=== PATIENT | female | born 1980 | race Caucasian/White ===

== ENCOUNTER 2017-11-21 16:52 | Inpatient (IN) | payer MEDICAID ==
[~2017-11-21] VITALS: Ht 157.5 cm; Wt 126.1 kg
[~2017-11-21 16:52] MED LIST: ASPI81CT89 PO; ATOR20TA40 PO; CARV6.252 PO; LISI10TA11 PO; SPIR25TA PO
[2017-11-21 16:59] VITALS: BP 219/186
--- NOTE | 2017-11-21 17:00 | NUR ---
DR. ZARAGOZA MADE AWARE OF B/P 219/189
--- NOTE | 2017-11-21 17:00 | NUR ---
PATIENT PRESENTS TO ED WITH COMPLAINTS OF SOB AND ABDOMINAL PAIN. PATIENT STATES IT STARTED TODAY. DENIES N/V/D; SKIN IS PINK/WARM/DRY; AAOX4 WITH EVEN AND STEADY GAIT; LUNGS CLEAR BL; HR EVEN AND REGULAR; PT DENIES ANY FEVER, CP, OR COUGH AT THIS TIME; PATIENT STATES PAIN OF 6/10 AT THIS TIME; VSS; PATIENT POSITIONED FOR COMFORT; HOB ELEVATED; BEDRAILS UP X1; BED DOWN. ER MD MADE AWARE OF PT STATUS.
[2017-11-21] MEDS ORDERED: PANTOPRAZOLE 40 MG INJ VIAL IVP ONE (17:25)
[2017-11-21] MEDS ORDERED: fentaNYL 0.05 MG/ML VIAL IVP ONE (17:25)
[2017-11-21] MEDS ORDERED: ONDANSETRON 4 MG/2 ML VIAL IVP ONE (17:25)
[2017-11-21] MEDS ORDERED: ENALAPRILAT 2.5 MG/2 ML VIAL IVP ONE ×2 (17:25→18:45)
[2017-11-21 18:14] LABS: ANION GAP 7.6 (8-16); CARBON DIOXIDE 29.9 mmol/L (21-32); POTASSIUM 3.5 mmol/L (3.5-5.1)
[2017-11-21 18:15] LABS: BASOPHILS % (AUTO) 0.4 % (0.0-2.0); EOSINOPHILS # (AUTO) 0.1 K/uL (0-0.4); EOSINOPHILS % (AUTO) 0.9 % (0.0-4.0); HEMATOCRIT 41.6 % (36-48); HEMOGLOBIN 12.9 g/dL (12.0-16.0); LYMPHOCYTES # (AUTO) 3.6 K/uL (2.5-16.5); LYMPHOCYTES % (AUTO) 31.8 % (20.5-51.1); MEAN CORPUSCULAR HEMOGLOBIN 26 pg (27-31); MEAN CORPUSCULAR HGB CONC 31 g/dL (33-37); MEAN CORPUSCULAR VOLUME 84.6 fL (80-94); MONOCYTES # (AUTO) 0.8 K/uL (0.8-1.0); MONOCYTES % (AUTO) 6.7 % (1.7-9.3); NEUTROPHILS # (AUTO) 6.8 K/uL (1.8-7.7); NEUTROPHILS % (AUTO) 60.2 % (42.2-75.2); PLATELET COUNT (AUTO) 227 K/uL (140-450); RED BLOOD CELL COUNT(AUTO) 4.91 MIL/uL (4.20-5.40); RED CELL DISTRIBUTION WIDTH 17.8 % (11.6-13.7); WHITE BLOOD COUNT (AUTO) 11.3 K/uL (4.8-10.8)
[2017-11-21 18:20] LABS: ALBUMIN 3.3 g/dL (3.4-5.0); TOTAL BILIRUBIN 1.2 mg/dL (0.0-1.0)
[2017-11-21] MEDS ORDERED: ASPIRIN 81 MG TAB.CHEW PO ONE (18:45)
[2017-11-21] MEDS ORDERED: NITROGLYCERIN 2% 1 GM PKT TP ONE (18:45)
--- NOTE | 2017-11-21 19:18 | NUR ---
ASKED PT TO GET UP AND TRY TO PROVIDE URINE AGAIN AT THIS TIME
--- NOTE | 2017-11-21 19:22 | NUR ---
PT UNABLE TO PROVIDE URINE AT THIS TIME
[2017-11-21] MEDS ORDERED: ONDANSETRON 4 MG/2 ML VIAL IVP PRN (19:30)
[2017-11-21] MEDS ORDERED: ZOLPIDEM 5 MG TAB PO PRN (19:30)
[2017-11-21] MEDS ORDERED: NITROGLYCERIN 0.4 MG TAB SL PRN (19:40)
--- NOTE | 2017-11-21 19:53 | NUR ---
Dr. Diana evaluating patient at bedside.
--- NOTE | 2017-11-21 19:55 | NUR ---
DR. SMITH AWARE OF B/P 201/156 AT THIS TIME
[2017-11-21 20:05] VITALS: BP 211/166
--- NOTE | 2017-11-21 20:05 | NUR ---
RECEIVED REPORT FROM KODY FINANCE DIRECTOR NURSE AT BEDSIDE FOR CONTINUITY OF CARE. PT ARRIVED FROM ER VIA GURNEY. PT ABLE TO AMBULATE TO THE BED. SHE IS A 36F AOX4 SKIN INTACT WITH C/O OF SOB. PT HX; INCLUDE HTN. V/S INCLUDE: T 97.3 P 90 R 22 B/P 211/166 02 98 WITH 2 L VIA N/C.
--- NOTE | 2017-11-21 20:12 | NUR ---
Patient will be admitted to care of DR. OLEARY. Admited to TELE. Will go to room 107B. Belongings list completed. Report to ZACK GATES.
[2017-11-21 20:16] LABS: PROTHROMBIN TIME 12.6 secs (10.8-13.4)
[2017-11-21] MEDS ORDERED: hydrALAZINE 20 MG/ML VIAL IVP SCH (20:30)
--- NOTE | 2017-11-21 20:30 | NUR ---
RESIDENT DR Mario SMITH MD EVALUATING PT AT BEDSIDE.
[2017-11-21 20:32] LABS: APPEARANCE,URINE CLEAR (CLEAR); BILIRUBIN,URINE 1+ (NEGATIVE); BLOOD, URINE 2+ (NEGATIVE); COLOR,URINE YELLOW (YELLOW); LEUKOCYTE ESTERASE ,URINE NEGATIVE (NEGATIVE); NITRITE, URINE NEGATIVE (NEGATIVE); UGLUCOSE NEGATIVE (NEGATIVE)
[2017-11-21] MEDS ORDERED: ORE25 PO (20:40)
[2017-11-21] MEDS ORDERED: AMLO5TAB PO (20:40)
[2017-11-21] MEDS ORDERED: LISI-420 PO (20:40)
[2017-11-21] MEDS ORDERED: DOCU-300 PO (20:40)
[2017-11-21] MEDS ORDERED: CLON0.2T16 PO (20:40)
[2017-11-21] MEDS ORDERED: hydrALAZINE 10 MG TAB PO STA (20:42)
[2017-11-21] MEDS ORDERED: CLONIDINE HCL 0.2 MG PO SCH (20:45)
[2017-11-21 20:50] LABS: BARBITURATE, URINE NEGATIVE ng/ml (NEG <=200); BENZODIAZEPINE, URINE NEGATIVE ng/mL (NEG <=200); CANNABINOID, URINE NEGATIVE ng/mL (NEG <=50); COCAINE, URINE NEGATIVE ng/mL (NEG <=300); OPIATE, URINE NEGATIVE ng/mL (NEG <=2000); PHENCYCLIDINE SCREEN,URINE NEGATIVE ng/mL (NEG <=25)
[2017-11-21] MEDS: NACL 0.9% 1,000 ML IV SCH (20:59)
[2017-11-21] MEDS ORDERED: DOCUSATE SODIUM 100 MG GELCAP PO SCH (21:00)
--- NOTE | 2017-11-21 21:00 | NUR ---
PRT RECEIVED APRESSOLINE 10MG IVP AND HEPARIN GTT STARTED.
--- NOTE | 2017-11-21 21:15 | NUR ---
PT TAKEN DOWN TO X-RAY.
[2017-11-21] MEDS ORDERED: DIPHENOXYLATE /ATROPINE 2.5 MG TAB PO PRN (21:25)
[2017-11-21 21:40] LABS: RBC,URINE 3-10 (FEW) /HPF (0-5); URINE AMORPHOUS URATE 3+ /HPF (None Seen); WBC,URINE 0-5 (RARE) /HPF (0-5)
[2017-11-21 21:42] LABS: MAGNESIUM 1.9 mg/dL (1.8-2.4)
[2017-11-21 21:43] LABS: FREE T4 (FREE THYROXINE) 1.44 ng/dL (0.76-1.46); PHOSPHORUS 3.4 mg/dL (2.5-4.9); THYROID STIMULATING HORMONE 2.28 uIU/mL (0.34-3.74)
[2017-11-21] MEDS: hePARIN / DEXT 5% PREMIX 250 ML IV SCH (22:54)
[2017-11-21] MEDS ORDERED: cloNIDine 0.1 MG TAB PO SCH (23:00)
[2017-11-21] MEDS ORDERED: FUROSEMIDE 40 MG/4 ML VIAL IVP SCH (23:30)
[2017-11-21] MEDS ORDERED: HYDROCHLOROTHIAZIDE 25 MG TAB PO SCH (23:30)
[2017-11-21] MEDS ORDERED: LISINOPRIL 20 MG TAB PO SCH (23:30)
[2017-11-22] VITALS: BP 182/122
[2017-11-22] MEDS: HYDROcodone/APAP 7.5/325 MG 1 TAB PO PRN (00:37)
--- NOTE | 2017-11-22 01:00 | NUR ---
PT C/O OF HEADACHE AND RECEIVED A NORCO PO/PRN. WITH POSITIVE EFFECT V/S AT THIS TIME : T 97.5 P 78 R 20 B/P 182/122 02 94% ON R/A.
[2017-11-22] MEDS: ACETAMINOPHEN 325 MG TAB PO PRN (01:35)
[2017-11-22 04:00] VITALS: BP 186/118
--- NOTE | 2017-11-22 04:30 | NUR ---
PT OLD IV SITE ON R AC IS LEAKING, NEW SITE ON L HAND PROVIDED.
[2017-11-22 05:11] LABS: BASOPHILS # (AUTO) 0.1 K/uL (0.00-0.22); BASOPHILS % (AUTO) 0.6 % (0.0-2.0); EOSINOPHILS # (AUTO) 0.2 K/uL (0-0.4); EOSINOPHILS % (AUTO) 1.5 % (0.0-4.0); HEMATOCRIT 38.7 % (36-48); HEMOGLOBIN 12.4 g/dL (12.0-16.0); LYMPHOCYTES # (AUTO) 2.8 K/uL (2.5-16.5); LYMPHOCYTES % (AUTO) 25.6 % (20.5-51.1); MEAN CORPUSCULAR HEMOGLOBIN 27 pg (27-31); MEAN CORPUSCULAR HGB CONC 32 g/dL (33-37); MEAN CORPUSCULAR VOLUME 84.6 fL (80-94); MONOCYTES # (AUTO) 0.8 K/uL (0.8-1.0); MONOCYTES % (AUTO) 7.1 % (1.7-9.3); NEUTROPHILS # (AUTO) 7.1 K/uL (1.8-7.7); NEUTROPHILS % (AUTO) 65.2 % (42.2-75.2); PLATELET COUNT (AUTO) 193 K/uL (140-450); RED BLOOD CELL COUNT(AUTO) 4.58 MIL/uL (4.20-5.40); WHITE BLOOD COUNT (AUTO) 10.9 K/uL (4.8-10.8)
[2017-11-22 05:36] LABS: ANION GAP 7.3 (8-16); CARBON DIOXIDE 30.7 mmol/L (21-32); CREATININE 0.9 mg/dL (0.6-1.3)
[2017-11-22 05:44] LABS: CHOL/HDL RATIO 7.6 (1-4.5); MAGNESIUM 1.9 mg/dL (1.8-2.4)
[2017-11-22] MEDS: LISINOPRIL 20 MG TAB PO SCH (06:32)
--- NOTE | 2017-11-22 06:33 | NUR ---
DR FONTANEZ ORDERED PT B/P MEDS TO NE GIVEN EARLY DUE TO PT B/P COMING BACK UP ; B/P WAS 186/118. PT RESTING IN BED AND HAS NO C/O VOICED.
[2017-11-22] MEDS: hePARIN / DEXT 5% PREMIX 250 ML IV SCH ×3 (07:04→22:22)
--- NOTE | 2017-11-22 07:15 | NUR ---
GAVE REPORT TO DAYSHIFT RN AT BEDSIDE PT IN STABLE CONDITION.
--- NOTE | 2017-11-22 07:16 | NUR ---
RECEIVED REPORT FROM ELECTRIC WELDER HELPER NURSE, PATIENT LYING DOWN IN BED RECEIVING US. NO DISTRESS NOTED. DENIES ANY PAIN AT THIS TIME. RESPIRATIONS EVEN, UNLABORED, ON ROOM AIR. AAOX4, CALM, COOPERATIVE, SKIN COLOR APPROPRIATE TO ETHNICITY, WARM TO TOUCH. SKIN IS INTACT. BP IS HIGH 201/132, PULSE 75, NOTIFIED DR. OLEARY DURING ROUNDS, MD TO INPUT IV BP. LUNGS CTA ON ALL LOBES. ABDOMEN SOFT, OBESE. IV SITE INTACT, PATENT, AND INFUSING HEPARIN DRIP PER PROTOCOL. REVIEWED PLAN OF CARE WITH PATIENT. PATIENT VERBALIZED UNDERSTANDING. SAFETY MEASURES IN PLACE, CALL LIGHT WITHIN REACH. WILL CONTINUE TO MONITOR.
[2017-11-22] MEDS ORDERED: HEPARIN PER PHARMACY MC PRN (07:29)
[2017-11-22 08:00] VITALS: BP 201/132
[2017-11-22] MEDS ORDERED: POTASSIUM CHLORIDE 10 MEQ TABER PO SCH (08:00)
[2017-11-22] MEDS ORDERED: hydrALAZINE 20 MG/ML VIAL IVP SCH (08:33)
--- NOTE | 2017-11-22 08:37 | NUR ---
PATIENT HAS BEEN SCREENED AND CATEGORIZED HIGH NUTRITION RISK. PATIENT WILL BE SEEN WITHIN 1-2 DAYS OF ADMISSION. 11/22/17 11/23/[address]
[2017-11-22] MEDS: FAMOTIDINE 20 MG TAB PO SCH ×2 (08:51→21:00)
[2017-11-22] MEDS: ASPIRIN 81 MG TAB.CHEW PO SCH (08:51)
[2017-11-22] MEDS: FUROSEMIDE 20 MG/2 ML VIAL IVP SCH ×2 (08:52→18:17)
[2017-11-22] MEDS ORDERED: amLODIPine 5 MG TAB PO SCH (09:00)
[2017-11-22] MEDS ORDERED: HYDROCHLOROTHIAZIDE 25 MG TAB PO SCH (09:00)
--- NOTE | 2017-11-22 09:02 | NUR ---
PATIENT SITTING IN BED COMFORTABLY. DENIES ANY PAIN. NO DISTRESS NOTED. COMPLAINS OF SINUSITIS IN MID NOSE, OTHERWISE NO SYMPTOMS OF HIGH BP. BP CONTINUES TO BE ELEVATED. HYDRALAZINE IV NOT AVAILABLE AT THIS TIME PER PHARMACY. WILL NOTIFY MD. OTHER SCHEDULED MEDICATIONS DUE GIVEN. SAFETY MEASURES IN PLACE, CALL LIGHT WITHIN REACH. WILL CONTINUE TO MONITOR.
[2017-11-22] MEDS: ATORVASTATIN 20 MG TAB PO SCH (09:10)
[2017-11-22] MEDS: cloNIDine 0.1 MG TAB PO PRN (10:46)
--- NOTE | 2017-11-22 10:47 | NUR ---
PATIENT LYING DOWN IN BED. NO DISTRESS NOTED. BP CONTINUES TO BE ELEVATED AT 190/135, PULE:82, CLONIDINE PO GIVEN PER MD ORDERS. WILL CONTINUE TO MONITOR.
[2017-11-22 12:00] VITALS: BP 155/111
--- NOTE | 2017-11-22 12:12 | NUR ---
CM NOTE INITIAL REVIEW FAXED TO [facility] [phone] PH# [phone] AND TO [facility] [phone] PH# [phone] JAYDEN ZELAYA 570
--- NOTE | 2017-11-22 12:15 | NUR ---
PATIENT SITTING IN BED WITH LUNCH TRAY IN FRONT. NO DISTRESS NOTED. DENIES ANY PAIN. BP IS ELEVATED BUT HAS GONE DOWN. SAFETY MEASURES IN PLACE, CALL LIGHT WITHIN REACH. WILL CONTINUE TO MONITOR.
--- NOTE | 2017-11-22 14:30 | NUR ---
PATIENT WENT TO BATHROOM AND BACK TO BED WITH STEADY GAIT. NO DISTRESS NOTED. HEPARIN DRIP ADJUSTED PER PROTOCOL. SAFETY MEASURES IN PLACE, CALL LIGHT WITHIN REACH. WILL CONTINUE TO MONITOR.
--- NOTE | 2017-11-22 15:37 | NUR ---
11/22/17 RD INITIAL ASSESSMENT COMPLETED. PLEASE REFER TO NUTRITION ASSESSMENT UNDER CARE ACTIVITY FOR ESTIMATED NUTRITIONAL NEEDS. 1. CONTINUE CARDIAC DIET TOLERATED. 2. HEART HEALTHY DIET EDUCATION PROVIDED. 3. RD TO FOLLOW-UP 3-5 DAYS, MODERATE RISK. KIMBER BAHENA, RD
[2017-11-22 16:00] VITALS: BP 168/113
--- NOTE | 2017-11-22 18:21 | NUR ---
PATIENT SITTING IN BED WITH DINNER TRAY IN FRONT. NO DISTRESS NOTE. DENIES PAIN. SCHEDULED MEDICATIONS DUE GIVEN. WILL CONTINUE TO MONITOR.
--- NOTE | 2017-11-22 19:25 | NUR ---
RECEIVED REPORT FROM BARAK CARTAGENA AT BEDSIDE FOR CONTINUITY OF CARE, PT IN STABLE CONDITION.
--- NOTE | 2017-11-22 19:25 | NUR ---
GAVE REPORT TO FUEL ASSEMBLER NURSE FOR CONTINUITY OF CARE. PATIENT IN STABLE CONDITION.
[2017-11-22] MEDS: NACL 0.9% 1,000 ML IV SCH (19:28)
[2017-11-22 20:00] VITALS: BP 157/104
--- NOTE | 2017-11-22 20:00 | NUR ---
PT LYING IN LOW BED WITH SIDE RAILS UP X2. BOTH IV SITES IN L EXTREMITY L HAND 20G AND L F/A 22G FLUSHED PATENT HEPARIN GTT CONTINUES AT 1450 UNITS , AWAITING NEXT PTT DRAW, PT HAS NO S/S OF BLEEDING OR BRUISING. PT AMBULATED TO TOILET, SHE IS AO X 4 SHE HAS NO C/O VOICED AND V/S FOLLOWS T 98.4 P 82 R 20 B/P 157/104. WILL CONTINUE TO MONITOR HEPARIN GTT AND SIDE EFFECTS WELL B/P. PT VISITING WITH FRIEND AT BEDSIDE.
[2017-11-23] VITALS: BP 162/104
--- NOTE | 2017-11-23 | NUR ---
PT IN BED ASLEEP BUT AROUSABLE TO NAME AND TOUCH. PT HAD NO C/O VOICED AND NO S/S OF PAIN OR DISTRESS NOTED. V/S FOLLOWS T98.4 P 93 R 18 B/P 162/101 02 IS 96 WITH R/A.PT GIVEN PRN CLONODINE FOR SYSTOLIC PRESSURE OVER 160/ WILL CONTINUE TO MONITOR B/P.
--- NOTE | 2017-11-23 01:00 | NUR ---
PT C/O OF LEG CRAMPS 10/16 GIVEN NORCO PRN.
[2017-11-23] MEDS: cloNIDine 0.1 MG TAB PO PRN (02:43)
[2017-11-23 04:00] VITALS: BP 159/71
--- NOTE | 2017-11-23 04:30 | NUR ---
LAB HERE TO DRAW BLOOD FOR APTT
--- NOTE | 2017-11-23 05:00 | NUR ---
PT PTT RESULT READ BACK BY FARZAD IN LAB CALLED PTT A CRITICAL VALUE, PTT IS 81.8. NOT NOTIFIED BECAUSE THERE IS A HEPARIN PROTOCOL IN PLACE.
[2017-11-23 05:09] LABS: BASOPHILS # (AUTO) 0.1 K/uL (0.00-0.22); BASOPHILS % (AUTO) 0.5 % (0.0-2.0); EOSINOPHILS # (AUTO) 0.4 K/uL (0-0.4); EOSINOPHILS % (AUTO) 3.8 % (0.0-4.0); HEMATOCRIT 40.1 % (36-48); HEMOGLOBIN 12.5 g/dL (12.0-16.0); LYMPHOCYTES # (AUTO) 2.8 K/uL (2.5-16.5); LYMPHOCYTES % (AUTO) 25.9 % (20.5-51.1); MEAN CORPUSCULAR HEMOGLOBIN 27 pg (27-31); MEAN CORPUSCULAR HGB CONC 31 g/dL (33-37); MEAN CORPUSCULAR VOLUME 86.3 fL (80-94); MONOCYTES # (AUTO) 0.8 K/uL (0.8-1.0); MONOCYTES % (AUTO) 7.2 % (1.7-9.3); NEUTROPHILS # (AUTO) 6.8 K/uL (1.8-7.7); NEUTROPHILS % (AUTO) 62.6 % (42.2-75.2); PLATELET COUNT (AUTO) 199 K/uL (140-450); RED BLOOD CELL COUNT(AUTO) 4.65 MIL/uL (4.20-5.40); WHITE BLOOD COUNT (AUTO) 10.9 K/uL (4.8-10.8)
[2017-11-23] MEDS: ACETAMINOPHEN 325 MG TAB PO PRN (05:30)
--- NOTE | 2017-11-23 05:38 | NUR ---
PT GIVEN TYLENOL 650MG FOR H/A 07/17 WILL MONITOR RESULT OF PAIN MED.
[2017-11-23 05:48] LABS: ANION GAP 5.6 (8-16); CARBON DIOXIDE 32.6 mmol/L (21-32); POTASSIUM 3.2 mmol/L (3.5-5.1)
[2017-11-23 05:49] LABS: PHOSPHORUS 4.2 mg/dL (2.5-4.9)
[2017-11-23] MEDS: hePARIN / DEXT 5% PREMIX 250 ML IV SCH (06:32)
--- NOTE | 2017-11-23 07:37 | NUR ---
REPORT GIVEN TO BRIE RN AT BEDSIDE FOR CONTINUITY OF CARE, PT IN STABLE CONDITION.
--- NOTE | 2017-11-23 07:38 | NUR ---
RECEIVED REPORT FROM SHACTOR NURSE ZACK AT BEDSIDE FOR CONTINUITY OF CARE. PT IS AWAKE AND ORIENTED X4. INTRODUCED SELF AND UPDATED BOARD. PT GOT UP TO USE BATHROOM. WALKED WITH STEADY GAIT. REPORTED LBM WAS SUNDAY. PT DENIES CHEST PAIN. LUNG SOUNDS CLEAR ON AUSCULTATION. O2 SAT 97% ON RA. HEPARIN DRIP INFUSING AT 1610 UNITS/HR. NO S/SX OF BLEEDING. NO SIGNS OF DISTRESS. PT IS SITTING UP IN BED EATING BREAKFAST. CALL LIGHT WITHIN REACH. WILL CONTINUE TO MONITOR.
[2017-11-23 08:00] VITALS: BP 181/110
[2017-11-23] MEDS: HYDROCHLOROTHIAZIDE 25 MG TAB PO SCH (09:25)
[2017-11-23] MEDS: LISINOPRIL 20 MG TAB PO SCH (09:25)
[2017-11-23] MEDS: ASPIRIN 81 MG TAB.CHEW PO SCH (09:26)
[2017-11-23] MEDS: ATORVASTATIN 20 MG TAB PO SCH (09:26)
[2017-11-23] MEDS: FUROSEMIDE 20 MG/2 ML VIAL IVP SCH (09:26)
[2017-11-23] MEDS: FAMOTIDINE 20 MG TAB PO SCH ×2 (09:26→21:00)
[2017-11-23] MEDS: amLODIPine 5 MG TAB PO SCH (09:26)
--- NOTE | 2017-11-23 10:32 | NUR ---
DISCONTINUED HEPARIN DRIP ORDERED BY . REPORTED TO DR. CHOI PT'S K WAS 3.2. CHECKED ON PT IN ROOM. NO SIGNS OF DISTRESS. PT AWARE THAT SHE IS NPO FOR US TEST. SITTING UP IN BED. CALL LIGHT WITHIN REACH. WILL CONTINUE TO MONITOR.
[2017-11-23] MEDS ORDERED: KCL 20 MEQ/WATER INJ PREMIX 200 ML IV SCH (11:00)
--- NOTE | 2017-11-23 11:01 | NUR ---
CM NOTE CONCURRENT REVIEW FAXED TO [facility] [phone] PH# [phone] AND TO [facility] [phone] PH# [phone] JAYDEN ZELAYA 576
[2017-11-23 12:00] VITALS: BP 147/94
--- NOTE | 2017-11-23 14:10 | NUR ---
CHECKED ON PT IN ROOM. SITTING UP AT EDGED OF BED, NO COMPLAINTS AT THIS TIME. WAITING FOR US KIDNEY. PT AWARE NEEDS TO BE NPO TILL TEST. NO SIGNS OF DISTRESS. CALL LIGHT WITHIN REACH. WILL CONTINUE TO MONITOR.
--- NOTE | 2017-11-23 15:09 | NUR ---
I attempted to meet with Patient for a screen to discuss, confirm and gather additional patient information and offer resources needed by patient upon discharge. Patient was receiving others Medical Service (ultra sound). Patient requested these screenplay writer to do screen in another time when there was less people in the room. I agreed and left room.
[2017-11-23 16:00] VITALS: BP 177/102
--- NOTE | 2017-11-23 16:25 | NUR ---
PT DONE WITH US OF KIDNEYS. GAVE PT SANDWICH AND FAMILY MEMBER BROUGHT FOOD FROM HOME. PT SITTING UP IN BED EATING. TWO FAMILY MEMBERS AT BEDSIDE. NO SIGNS OF DISTRESS. CALL LIGHT WITHIN REACH. WILL CONTINUE TO MONITOR.
[2017-11-23] MEDS: FUROSEMIDE 40 MG/4 ML VIAL IVP SCH (16:59)
--- NOTE | 2017-11-23 19:10 | NUR ---
RECEIVED REPORT FROM BRIE GATES DAYSHIFT NURSE AT BEDSIDE FOR CONTINUTIY OF CARE, PT IN STABLE CONDITION. FAMILY AT BEDSIDE.
--- NOTE | 2017-11-23 19:10 | NUR ---
ENDORSED PT TO SALES OFFICE ASSISTANT NURSE ZACK AT BEDSIDE FOR CONTINUITY OF CARE. PT IN STABLE CONDITION.
[2017-11-23] MEDS: NACL 0.9% 1,000 ML IV SCH (19:28)
--- NOTE | 2017-11-23 19:40 | NUR ---
PT IN LOW BED, SIDE RAILS UP X 2, IV MAG RIDER RUNNING AT 20 MLS VIA IV SITE LEFT F/A 22 GAUGE. L HAND IV SITE AT 18G BUT SALINE LOCKED AT THIS TIME. PT FAMILY CONCERNED ABOUT EDEMA OF LOWER EXTREMITIES. FOOT OF BED RAISED AND FEET PLACED ON PILLOW. V/S FOLLOWS T 97.9 P 83 R 18 B/P 161/94. 02 96 ON ROOM AIR.
[2017-11-23 20:00] VITALS: BP_SYST 161; BP_SYST 167; BP_DIAS 101; BP_DIAS 106; BP_DIAS 94
--- NOTE | 2017-11-23 20:00 | NUR ---
PT IV PUMP BEEPING LEFT F/A IV SITE NOT FLUSHING, L HAND SITE FLUSHED PATENT AND IV MOVED TO HAND. PT BEGAN TO C/O OF PAIN IN HAND , IV SHUT OFF, IV SITE FLUSHED PATENT WITH NO PAIN. WILL SPEAK TO RESIDENT DOCTOR REGARDING ORAL PILL FOR POTASSUIM.
--- NOTE | 2017-11-23 20:30 | NUR ---
PT AMBULATED IN HALLWAY UNASSISTED NO S/S OF PAIN DISTRESS OR SOB.
--- NOTE | 2017-11-23 21:07 | NUR ---
RESIDENTS MADE AWARE OF K- RIDER ORDER NOT FINNINSHE DUE TO PAIN WITH ADMINISTRATION,. NO NEW ORDERS NOTED WILL CONTINUE TO MONITOR POTASSUIM LEVEL WITH NEXT LAB DRAW.
--- NOTE | 2017-11-23 21:16 | NUR ---
PT N/S STILL INFUSING, AND PT GIVEN PEPCID 20MG.
[2017-11-24] VITALS (7 sets, daily range): BP systolic 135–182; BP diastolic 82–119
--- NOTE | 2017-11-24 | NUR ---
PT SITTING UP IN CHAIR WATCHING T.V PT C/O OF LEGS STARTING TO BOTHER HER, BUT SHE DID NOT WANT HER PAIN MEDICATION AT THIS TIME.
[2017-11-24] MEDS: HYDROcodone/APAP 7.5/325 MG 1 TAB PO PRN ×3 (00:59→22:03)
--- NOTE | 2017-11-24 01:00 | NUR ---
PT REQUEST NORCO PRN FOR LEG CRAMPS... GIVEN PRN
--- NOTE | 2017-11-24 02:00 | NUR ---
POSITIVE EFFECT OF NORCO NOTED PT ASLEEP.
--- NOTE | 2017-11-24 05:15 | NUR ---
PT REQUESTED AND WAS GIVEN PRN TYLENOL FOR MILD PAIN IN LEGS
[2017-11-24] MEDS: ACETAMINOPHEN 325 MG TAB PO PRN (05:16)
[2017-11-24 06:44] LABS: BASOPHILS % (AUTO) 0.3 % (0.0-2.0); EOSINOPHILS # (AUTO) 0.4 K/uL (0-0.4); EOSINOPHILS % (AUTO) 4.1 % (0.0-4.0); HEMATOCRIT 44.4 % (36-48); HEMOGLOBIN 14.1 g/dL (12.0-16.0); LYMPHOCYTES # (AUTO) 2.1 K/uL (2.5-16.5); LYMPHOCYTES % (AUTO) 23.8 % (20.5-51.1); MEAN CORPUSCULAR HEMOGLOBIN 27 pg (27-31); MEAN CORPUSCULAR HGB CONC 32 g/dL (33-37); MEAN CORPUSCULAR VOLUME 84.7 fL (80-94); MONOCYTES # (AUTO) 0.8 K/uL (0.8-1.0); MONOCYTES % (AUTO) 8.9 % (1.7-9.3); NEUTROPHILS # (AUTO) 5.6 K/uL (1.8-7.7); NEUTROPHILS % (AUTO) 62.9 % (42.2-75.2); PLATELET COUNT (AUTO) 235 K/uL (140-450); RED BLOOD CELL COUNT(AUTO) 5.24 MIL/uL (4.20-5.40); WHITE BLOOD COUNT (AUTO) 8.9 K/uL (4.8-10.8)
[2017-11-24 07:01] LABS: CREATININE 0.9 mg/dL (0.6-1.3)
[2017-11-24 07:05] LABS: MAGNESIUM 2.2 mg/dL (1.8-2.4)
[2017-11-24 07:12] LABS: ANION GAP 5.4 (8-16); CARBON DIOXIDE 35.2 mmol/L (21-32); POTASSIUM 3.6 mmol/L (3.5-5.1)
--- NOTE | 2017-11-24 07:20 | NUR ---
RECEIVED PATIENT REPORT AT BEDSIDE. PATIENT AWAKE, ALERT AND ORIENTED. NO S/S OF DISTRESS. PATIENT ON ROOM AIR. BLE +2 PITTING EDEMA NOTED. PATIENT ON TELE MONITORING. BED LOWERED WITH CALL LIGHT WITHIN REACH. WILL CONTINUE TO MONITOR
--- NOTE | 2017-11-24 07:25 | NUR ---
REPORT GIVEN AT BEDSIDE TO AUBREE GATES FOR CONTINUITY OF CARE, PT IN STABLE CONDITION.
--- NOTE | 2017-11-24 07:58 | NUR ---
PATIENT C/O LEG PAIN. PRN PAIN MEDICATION ADMINISTERED. WILL CONTINUE TO MONITOR
[2017-11-24] MEDS ORDERED: AMLO10TA PO (08:34)
[2017-11-24] MEDS ORDERED: HYDR-3108 PO (08:34)
[2017-11-24] MEDS ORDERED: METO50TE2 PO (08:46)
[2017-11-24] MEDS ORDERED: ATOR20TA40 PO (08:47)
[2017-11-24] MEDS: ASPIRIN 81 MG TAB.CHEW PO SCH (08:51)
[2017-11-24] MEDS: LISINOPRIL 20 MG TAB PO SCH (08:52)
[2017-11-24] MEDS: amLODIPine 5 MG TAB PO SCH (08:52)
[2017-11-24] MEDS: ATORVASTATIN 20 MG TAB PO SCH (08:52)
[2017-11-24] MEDS: HYDROCHLOROTHIAZIDE 25 MG TAB PO SCH (08:52)
[2017-11-24] MEDS: FUROSEMIDE 40 MG/4 ML VIAL IVP SCH ×2 (08:53→16:36)
[2017-11-24] MEDS: FAMOTIDINE 20 MG TAB PO SCH ×2 (08:53→22:02)
[2017-11-24] MEDS ORDERED: FURO-570 PO (08:55)
[2017-11-24] MEDS ORDERED: METOPROLOL SUCCINATE 50 MG TABER PO SCH (09:00)
[2017-11-24] MEDS ORDERED: hydrALAZINE 10 MG TAB PO SCH ×2 (12:00→21:00)
[2017-11-24] MEDS ORDERED: ENALAPRILAT 2.5 MG/2 ML VIAL IVP SCH (13:23)
--- NOTE | 2017-11-24 14:39 | NUR ---
BP CHECKED 140/[address] CHOI AWARE. PER , HOLD ORDERED VASOTEC FOR NOW
[2017-11-24] MEDS ORDERED: hydrALAZINE 25 MG TAB PO SCH (17:00)
--- NOTE | 2017-11-24 17:00 | NUR ---
MADE DR STEPH HOLDER OF PATIENT'S BP OF 182/119. PER DR CHOI, PATIENT WOUND BE DISCHARGED TODAY. NO NEW ORDERS
--- NOTE | 2017-11-24 18:30 | NUR ---
PATIENT AMBULATING AROUND THE UNIT. NO S/S OF DISTRESS
[2017-11-24] MEDS: NACL 0.9% 1,000 ML IV SCH (19:28)
--- NOTE | 2017-11-24 19:38 | NUR ---
RECEIVED PT IN STABLE CONDITION FORM AM NURSE. PT JUST GET BACK FROM AMBULATING ON THE HALLWAY WITH FAMILY. ON TELE MONITOR. WITH NO C/O ANY DISCOMFORT NOTED. WITH IV ACCESS ON THE RT WRIST 322. CLEAR AND PATENT. PLAN OF CARE DISCUSSED AND VERBALIZED UNDERSTANDING. BED ON LOW POSITION. CALL LIGHT PLACED WITHIN EASY REACH. INSTRUCTED TO CALL FOR ANY ASSISTANCE NEEDED. WILL CONTINUE TO MONITOR.
--- NOTE | 2017-11-24 19:38 | NUR ---
PATIENT REPORT GIVEN AT BEDSIDE. PATIENT ENDORSED IN STABLE CONDITION
--- NOTE | 2017-11-24 21:45 | NUR ---
PT STILL AWAKE. ON THE PHONE MOST OF THE TIMES. ENCOURAGED TO RELAX IN BED. WILL CONTINUE TO MONITOR BP.
--- NOTE | 2017-11-24 23:00 | NUR ---
PT REFUSED TO INSERT THE MADRIGAL CATHETER AT THIS TIME. HE SAID HE WANTS TO HAVE THE PAIN TO GO AWAY FIRST. Addendum: 11/25/17 at 0241 by Sarita Funes RN CANCEL ABOVE NOTES. WRONG PT.
--- NOTE | 2017-11-24 23:30 | NUR ---
VITAL SIGNS TAKEN. LATEST BP 135/82. WILL CONTINUE TO MONITOR.
--- NOTE | 2017-11-25 02:00 | NUR ---
MADE ROUNDS. PT ASLEEP. NO S/S OF DISCOMFORT NOTED.
--- NOTE | 2017-11-25 04:30 | NUR ---
LATEST BP 148/94. NO C/O ANY PAIN AT THIS TIME.
[2017-11-25 04:40] VITALS: BP 148/94
--- NOTE | 2017-11-25 07:15 | NUR ---
ENDORSED PT IN STABLE CONDITION TO AM NURSE.
[2017-11-25 07:50] LABS: BASOPHILS % (AUTO) 0.5 % (0.0-2.0); EOSINOPHILS # (AUTO) 0.5 K/uL (0-0.4); EOSINOPHILS % (AUTO) 4.5 % (0.0-4.0); HEMATOCRIT 47.3 % (36-48); HEMOGLOBIN 15.3 g/dL (12.0-16.0); LYMPHOCYTES # (AUTO) 2.4 K/uL (2.5-16.5); LYMPHOCYTES % (AUTO) 24.2 % (20.5-51.1); MEAN CORPUSCULAR HEMOGLOBIN 27 pg (27-31); MEAN CORPUSCULAR HGB CONC 32 g/dL (33-37); MEAN CORPUSCULAR VOLUME 84.8 fL (80-94); MONOCYTES # (AUTO) 0.9 K/uL (0.8-1.0); MONOCYTES % (AUTO) 8.7 % (1.7-9.3); NEUTROPHILS # (AUTO) 6.2 K/uL (1.8-7.7); NEUTROPHILS % (AUTO) 62.1 % (42.2-75.2); PLATELET COUNT (AUTO) 245 K/uL (140-450); RED BLOOD CELL COUNT(AUTO) 5.58 MIL/uL (4.20-5.40); RED CELL DISTRIBUTION WIDTH 17.3 % (11.6-13.7)
[2017-11-25 08:00] VITALS: BP 158/111
[2017-11-25 08:00] LABS: ANION GAP 11.1 (8-16); CARBON DIOXIDE 35.6 mmol/L (21-32); CREATININE 1.1 mg/dL (0.6-1.3); POTASSIUM 3.7 mmol/L (3.5-5.1)
[2017-11-25 08:17] LABS: MAGNESIUM 2.1 mg/dL (1.8-2.4); PHOSPHORUS 4.9 mg/dL (2.5-4.9)
[2017-11-25] MEDS: FUROSEMIDE 40 MG/4 ML VIAL IVP SCH (08:37)
[2017-11-25] MEDS: ATORVASTATIN 20 MG TAB PO SCH (08:37)
[2017-11-25] MEDS: hydrALAZINE 25 MG TAB PO SCH ×2 (08:37→13:26)
[2017-11-25] MEDS: ASPIRIN 81 MG TAB.CHEW PO SCH (08:37)
[2017-11-25] MEDS: HYDROCHLOROTHIAZIDE 25 MG TAB PO SCH (08:38)
[2017-11-25] MEDS: LISINOPRIL 20 MG TAB PO SCH (08:38)
[2017-11-25] MEDS: amLODIPine 5 MG TAB PO SCH (08:38)
[2017-11-25] MEDS: FAMOTIDINE 20 MG TAB PO SCH (08:38)
[2017-11-25] MEDS ORDERED: METOPROLOL SUCCINATE 50 MG TABER PO SCH (09:00)
--- NOTE | 2017-11-25 09:54 | NUR ---
PATIENT ASLEEP IN BED. NO S/S OF DISTRESS NOTED
[2017-11-25 13:27] VITALS: BP 145/108
[2017-11-25] MEDS ORDERED: HYDR-4420 PO (13:36)
[2017-11-25] MEDS ORDERED: LORA10TA19 PO (13:36)
[2017-11-25] MEDS ORDERED: ENALAPRILAT 2.5 MG/2 ML VIAL IVP SCH (13:40)
--- NOTE | 2017-11-25 14:10 | NUR ---
PATIENT ASLEEP IN BED. NO S/S OF DISTRESS NOTED
[2017-11-25 15:20] VITALS: BP 130/86
[2017-11-25] MEDS: HYDROcodone/APAP 7.5/325 MG 1 TAB PO PRN (15:21)
--- NOTE | 2017-11-25 16:20 | NUR ---
PATIENT DISCHARGED TO HOME. DISCHARGE INSTRUCTIONS AND DISCHARGE PRESCRIPTIONS GIVEN. PATIENT VERBALIZED UNDERSTANDING. IV LINE DISCONTINUED. TELE LEADS TAKEN OFF. PATIENT LEFT IN STABLE CONDITION
--- NOTE | 2017-11-27 15:15 | NUR ---
FAXED DISCHARGE SUMMARY TO [facility] [phone]
== END 2017-11-25 16:20 | disposition home or self-care (01) | DRG 194 ==
LOC: MED 16:52 → MTU 19:28
PROVIDERS: ADMIT General Practice; ATTEND General Practice
DX: I11.0 Hypertensive heart disease with heart failure (principal); I42.9 Cardiomyopathy, unspecified; I27.20 Pulmonary hypertension, unspecified; E87.1 Hypo-osmolality and hyponatremia; E83.51 Hypocalcemia; E66.01 Morbid (severe) obesity due to excess calories; I07.1 Rheumatic tricuspid insufficiency; I16.1 Hypertensive emergency; I50.43 Acute on chronic combined systolic (congestive) and diastolic (congestive) heart failure; Z68.43 Body mass index [BMI] 50.0-59.9, adult; K76.0 Fatty (change of) liver, not elsewhere classified; E11.9 Type 2 diabetes mellitus without complications; D72.829 Elevated white blood cell count, unspecified; E78.5 Hyperlipidemia, unspecified; K21.9 Gastro-esophageal reflux disease without esophagitis; E78.00 Pure hypercholesterolemia, unspecified; E80.6 Other disorders of bilirubin metabolism; F43.9 Reaction to severe stress, unspecified; R31.9 Hematuria, unspecified; Z90.49 Acquired absence of other specified parts of digestive tract; Z79.82 Long term (current) use of aspirin; Z79.899 Other long term (current) drug therapy; I25.2 Old myocardial infarction; Z82.49 Family history of ischemic heart disease and other diseases of the circulatory system; Z82.5 Family history of asthma and other chronic lower respiratory diseases
CPT/HCPCS: 36415; 71045; 71046; 76705; 80048; 80053; 80305; 81001; 82150; 83036; 83690; 83735; 83880; 84100; 84439; 84443; 84484; 85025; 85610; 85730; 87081; 93005; 93976; 96374; 96375; 96376; 99285; C9113; J0360; J1644; J1940; J2405; J3010; J3480; J3490; J7030; Q0092

== ENCOUNTER 2018-05-03 21:02 | Inpatient (IN) | payer MEDICAID ==
[~2018-05-03] VITALS: Ht 157.5 cm; Wt 103.9 kg
[~2018-05-03 21:02] MED LIST changes: +AMLO10TA PO; +ASPI-1718 PO; -ASPI81CT89 PO; -CARV6.252 PO; +DOCU-300 PO; +FURO-570 PO; +HYDR-3108 PO; +HYDR-4420 PO; +LISI-420 PO; -LISI10TA11 PO; +LORA10TA19 PO; +METO50TE2 PO; -SPIR25TA PO
[2018-05-03 21:16] VITALS: BP 211/140
--- NOTE | 2018-05-03 21:20 | NUR ---
TO LOBBY A/W BED, ECTOR CARRILLO NOTED
--- NOTE | 2018-05-03 21:48 | NUR ---
PT TO ER BED 3
--- NOTE | 2018-05-03 22:01 | NUR ---
37 Y/O F PRESENTS W/C/O VOMITING OVER A WEEK, AND STATES SHE CAN' T EAT SINCE SUNDAY. SKIN IS INTACT, PINK/WARM/DRY; AAOX4, PERRL, WITH EVEN AND STEADY GAIT; LUNGS CLEAR BL, BREATHING UNLABORED; HR EVEN AND REGULAR, BL PERIPHERAL PULSES PRESENT; BS ACTIVE X4, NO TENDERNESS TO PALPATION, NO HEPATOSPLENOMEGALLY PALPATED, RESONANT TO PERCUSSION; PT DENIES ANY FEVER, CP, SOB, OR COUGH AT THIS TIME; PT STATES 6/10 PAIN AT THIS TIME; VSS; PATIENT POSITIONED FOR COMFORT; HOB ELEVATED; BEDRAILS UP X2; BED DOWN.
[2018-05-03 22:09] LABS: BASOPHILS # (AUTO) 0.1 K/uL (0.00-0.22); BASOPHILS % (AUTO) 1.2 % (0.0-2.0); EOSINOPHILS # (AUTO) 0.2 K/uL (0-0.4); EOSINOPHILS % (AUTO) 2.5 % (0.0-4.0); HEMATOCRIT 46.3 % (36-48); HEMOGLOBIN 14.9 g/dL (12.0-16.0); LYMPHOCYTES # (AUTO) 1.7 K/uL (2.5-16.5); LYMPHOCYTES % (AUTO) 21.4 % (20.5-51.1); MEAN CORPUSCULAR HEMOGLOBIN 27 pg (27-31); MEAN CORPUSCULAR HGB CONC 32 g/dL (33-37); MEAN CORPUSCULAR VOLUME 83.1 fL (80-94); MONOCYTES % (AUTO) 13.4 % (1.7-9.3); NEUTROPHILS # (AUTO) 4.8 K/uL (1.8-7.7); NEUTROPHILS % (AUTO) 61.5 % (42.2-75.2); PLATELET COUNT (AUTO) 222 K/uL (140-450); RED BLOOD CELL COUNT(AUTO) 5.57 MIL/uL (4.20-5.40); RED CELL DISTRIBUTION WIDTH 19.2 % (11.6-13.7); WHITE BLOOD COUNT (AUTO) 7.8 K/uL (4.8-10.8)
[2018-05-03 22:15] LABS: APPEARANCE,URINE CLEAR (CLEAR); BILIRUBIN,URINE 3+ (NEGATIVE); BLOOD, URINE NEGATIVE (NEGATIVE); LEUKOCYTE ESTERASE ,URINE TRACE (NEGATIVE); NITRITE, URINE NEGATIVE (NEGATIVE); UGLUCOSE TRACE (NEGATIVE)
[2018-05-03 22:16] LABS: COLOR,URINE AMBER (YELLOW)
[2018-05-03 22:18] LABS: RBC,URINE 0-5 (RARE) /HPF (0-5); WBC,URINE 0-5 (RARE) /HPF (0-5)
[2018-05-03] MEDS ORDERED: MORPHINE SULFATE 4 MG/ML SYR IVP ONE (22:20)
[2018-05-03] MEDS ORDERED: NACL 0.9% 1,000 ML IV ONE (22:20)
[2018-05-03] MEDS ORDERED: ONDANSETRON 4 MG/2 ML VIAL IVP ONE (22:20)
--- NOTE | 2018-05-03 22:29 | NUR ---
PT TAKEN TO X-RAY AT THIS TIME
[2018-05-03 22:36] LABS: ANION GAP 8.6 (8-16); CARBON DIOXIDE 32.2 mmol/L (21-32); CREATININE 0.7 mg/dL (0.6-1.3); POTASSIUM 3.8 mmol/L (3.5-5.1)
[2018-05-03 22:47] LABS: ALBUMIN 3.3 g/dL (3.4-5.0); TOTAL BILIRUBIN 12.6 mg/dL (0.0-1.0)
[2018-05-03 23:20] LABS: PROTHROMBIN TIME 12.1 secs (10.8-13.4)
[2018-05-03] MEDS ORDERED: NACL 0.9% 1,000 ML IV SCH (23:21)
[2018-05-03] MEDS ORDERED: DOCUSATE SODIUM 100 MG GELCAP PO PRN (23:25)
[2018-05-03] MEDS ORDERED: MORPHINE SULFATE 2 MG/ML SYR IVP PRN (23:25)
[2018-05-03] MEDS ORDERED: ZOLPIDEM 5 MG TAB PO PRN (23:25)
--- NOTE | 2018-05-03 23:30 | NUR ---
PT IN BED TALKING ON CELL PHONE AT THIS TIME. NO DISTRESS NOTED.
[2018-05-04 00:03] VITALS: BP 240/115
--- NOTE | 2018-05-04 00:03 | NUR ---
RECEIVED BEDSIDE REPORT FROM ER NURSE, PATIENT IN BED, AWAKE ALERT AND AMBULATORY. IV IN RIGHT AC 22G SL, PATIENT DRESSING INTACT. PATIENT DENIES PAIN, LUNG SOUNDS CLEAR, SKIN INTACT, PATIENT C/O FEELING ITCHY. MRSA SCREEN COLLECTED AND SENT TO LAB. ADMISSION QUESTIONS ANSWERED WILL CONTINUE TO MONITOR.
--- NOTE | 2018-05-04 00:05 | NUR ---
Patient will be admitted to care of DR. MCCABE. Admited to TELE. Will go to room 119A. Belongings list completed. Report to CARMEN GATES.
[2018-05-04 00:15] LABS: MAGNESIUM 2.1 mg/dL (1.8-2.4); PHOSPHORUS 3.7 mg/dL (2.5-4.9); THYROID STIMULATING HORMONE 1.33 uIU/mL (0.34-3.74)
--- NOTE | 2018-05-04 00:30 | NUR ---
BP 240/[address] BOSTON. WILL FOLLOW WITH ORDERS.
[2018-05-04] MEDS ORDERED: LORATADINE 10 MG TAB PO SCH (01:00)
[2018-05-04] MEDS ORDERED: METOPROLOL SUCCINATE 50 MG TABER PO SCH ×3 (01:00→21:00)
[2018-05-04] MEDS: ENALAPRILAT 2.5 MG/2 ML VIAL IVP PRN ×2 (01:04→10:25)
--- NOTE | 2018-05-04 01:04 | NUR ---
DUE MEDICATIONS ADMINISTERED, EDUCATION PROVIDED. WILL REASSESS POST VASOTEC.
[2018-05-04] MEDS ORDERED: cefTRIAXone 1,000 MG VIAL ONE (01:05)
[2018-05-04 01:47] LABS: BARBITURATE, URINE NEG. ng/ml (NEG <=200); BENZODIAZEPINE, URINE NEG. ng/mL (NEG <=200); CANNABINOID, URINE NEG. ng/mL (NEG <=50); COCAINE, URINE NEG. ng/mL (NEG <=300); OPIATE, URINE NEG. ng/mL (NEG <=2000); PHENCYCLIDINE SCREEN,URINE NEG. ng/mL (NEG <=25)
--- NOTE | 2018-05-04 02:02 | NUR ---
BP 169/110 HR 103. RESIDENTS AWARE.
--- NOTE | 2018-05-04 03:03 | NUR ---
CALL FROM LAB, SPOKE WITH MARY, TROPONIN 0.192. TOLD DR BOSTON. POSSIBLE CT OF HEAD AND ORDER FOR HEPARIN.
[2018-05-04] MEDS ORDERED: HEPARIN PER PHARMACY MC PRN (03:20)
[2018-05-04 04:00] VITALS: BP 165/90
[2018-05-04] MEDS ORDERED: hePARIN / DEXT 5% PREMIX 250 ML IV SCH (04:00)
--- NOTE | 2018-05-04 04:21 | NUR ---
GAVE BOLUS 4400, STARTED IV HEPARIN DRIP AT 9 ML/HR. APTT 32.9 PLATELETS 222. PUT IN ORDER FOR REPEAT APTT AT 1021 AM. PATIENT C/O WANTING TO VOMIT. MEDICATED WITH ZOFRAN.
[2018-05-04] MEDS: ONDANSETRON 4 MG/2 ML VIAL IM/IVP PRN ×2 (04:28→10:16)
[2018-05-04] MEDS: PANTOPRAZOLE 40 MG INJ VIAL IVP SCH (05:54)
--- NOTE | 2018-05-04 05:54 | NUR ---
PROTONIX GIVEN PATIENT TOLERATED WELL, SCD IN PLACE
[2018-05-04 06:53] LABS: BASOPHILS % (AUTO) 0.5 % (0.0-2.0); EOSINOPHILS # (AUTO) 0.2 K/uL (0-0.4); EOSINOPHILS % (AUTO) 3.1 % (0.0-4.0); HEMATOCRIT 41.8 % (36-48); HEMOGLOBIN 13.4 g/dL (12.0-16.0); LYMPHOCYTES # (AUTO) 1.8 K/uL (2.5-16.5); LYMPHOCYTES % (AUTO) 24.4 % (20.5-51.1); MEAN CORPUSCULAR HEMOGLOBIN 27 pg (27-31); MEAN CORPUSCULAR HGB CONC 32 g/dL (33-37); MEAN CORPUSCULAR VOLUME 83.2 fL (80-94); MONOCYTES % (AUTO) 13.8 % (1.7-9.3); NEUTROPHILS # (AUTO) 4.3 K/uL (1.8-7.7); NEUTROPHILS % (AUTO) 58.2 % (42.2-75.2); PLATELET COUNT (AUTO) 201 K/uL (140-450); RED BLOOD CELL COUNT(AUTO) 5.02 MIL/uL (4.20-5.40); RED CELL DISTRIBUTION WIDTH 19.4 % (11.6-13.7); WHITE BLOOD COUNT (AUTO) 7.3 K/uL (4.8-10.8)
--- NOTE | 2018-05-04 07:23 | NUR ---
ENDORSED TO DAY SHIFT RN, PATIENT STABLE.
--- NOTE | 2018-05-04 07:24 | NUR ---
Received report from nurse Yisel. loader technician at bedside for abd ultrasound. Call light within reach. Right ac IV asymptomatic with ongoing heparin @ 900 units/hr.
[2018-05-04] MEDS ORDERED: hydrOXYzine HCL 25 MG TAB PO PRN (07:50)
[2018-05-04 08:00] VITALS: BP 192/134
[2018-05-04] MEDS: ASPIRIN 81 MG TAB.CHEW PO SCH (08:15)
[2018-05-04] MEDS: hydrALAZINE 25 MG TAB PO SCH ×3 (08:16→17:26)
[2018-05-04] MEDS ORDERED: hydrOXYzine HCL 25 MG TAB PO SCH (08:16)
[2018-05-04] MEDS: HYDROCHLOROTHIAZIDE 25 MG TAB PO SCH (08:17)
[2018-05-04] MEDS: LISINOPRIL 20 MG TAB PO SCH (08:17)
[2018-05-04] MEDS: LORATADINE 10 MG TAB PO SCH (08:18)
[2018-05-04 08:28] LABS: ANION GAP 8.1 (8-16); CARBON DIOXIDE 31.3 mmol/L (21-32); CREATININE 0.8 mg/dL (0.6-1.3); POTASSIUM 3.4 mmol/L (3.5-5.1)
[2018-05-04] MEDS ORDERED: amLODIPine 5 MG TAB PO SCH (09:00)
[2018-05-04] MEDS ORDERED: FUROSEMIDE 40 MG TAB PO SCH (09:00)
[2018-05-04 09:05] LABS: CHOL/HDL RATIO 25.2 (1-4.5)
--- NOTE | 2018-05-04 10:25 | NUR ---
Vasotec 5mg IV administered for HTN. Pt supine in bed, aaox4, respirations even & nonlabored, FLACC 0. Pt's mother at bedside visiting pt. Pt interacting appropriately. Call light within reach. Addendum: 05/04/18 at 1333 by Carolina Colby RN Amended: Links added.
--- NOTE | 2018-05-04 11:25 | NUR ---
BP reassessed post Vasotec. BP persistently elevated. Dr. Armstrong notified. Awaiting physician orders. Addendum: 05/04/18 at 1335 by Carolina Colby RN Amended: Links added.
[2018-05-04 12:00] VITALS: BP 197/130
--- NOTE | 2018-05-04 12:00 | NUR ---
Lunch tray held per smt technician d/t schedule abd ultrasound @ 5pm tonight. Pt notified & verbalized understanding. Agree to hold lunch today.
[2018-05-04] MEDS ORDERED: METOPROLOL 5 MG/5 ML VIAL IV SCH ×2 (12:10→16:12)
--- NOTE | 2018-05-04 12:29 | NUR ---
Metoprolol administered for persistent HTN. Pt resting in bed, respirations even & nonlabored. No c/o discomfort at this time. Call light within reach. Right ac IV intact with ongoing heparin drip @ 900 unit/hr.
--- NOTE | 2018-05-04 13:25 | NUR ---
BP reassessed post metoprolol. BP persistently elevated. Dr Armstrong notified. Pt resting in bed at this time. No c/o discomfort. Respirations even & nonlabored. Call light within reach. Right ac IV asymptomatic with ongoing heparin drip @ 900 unit/hr. Addendum: 05/04/18 at 1340 by Carolina Colby RN Amended: Links added.
[2018-05-04] MEDS ORDERED: LORazepam 2 MG/ML VIAL IVP SCH (14:25)
[2018-05-04 15:30] VITALS: BP 179/113
[2018-05-04] MEDS ORDERED: POTASSIUM CHLORIDE 10 MEQ TABER PO ONE ×2 (16:20→19:29)
[2018-05-04] MEDS ORDERED: FUROSEMIDE 40 MG/4 ML VIAL IVP SCH (17:25)
--- NOTE | 2018-05-04 17:30 | NUR ---
information technology administrator arrived at bedside for complete abd duplex US. Pt aaox4, no signs of distress, respirations even & nonlabored. Call light within reach.
--- NOTE | 2018-05-04 17:30 | NUR ---
Heparin drip stopped at this time. Right ac IV intact & asymptomatic. Pt in bed, awake, no c/o discomfort, aaox4, no bleeding noted. Left ac IV saline lock intact & asymptomatic. Call light within reach.
[2018-05-04] MEDS ORDERED: LORazepam 2 MG/ML VIAL IVP PRN (18:05)
--- NOTE | 2018-05-04 18:45 | NUR ---
Left unit via wheelchair with field service technician poultry for head CT. Pt awake, no signs of distress, respirations even & nonlabored.
--- NOTE | 2018-05-04 19:05 | NUR ---
Came back from CT via wheelchair to room 119A with technology lead. Pt amb to bed with steady gait. Call light within reach.
--- NOTE | 2018-05-04 19:10 | NUR ---
Report given to pm nurse Karl. Pt resting in bed, awake, verbally responsive, no signs of distress. 2 visitors at bedside.
--- NOTE | 2018-05-04 19:20 | NUR ---
RECEIVED PT AWAKE ON BED TALKING TO SISTER AT BEDSIDE, AAXO X4, VITAL SIGNS TAKEN, BP-140/78, DENIES ANY PAIN, PT STATED FEELING RELAXED AT THIS TIME, PLAN OF CARE DISCUSSED, PT EDUCATED ABOUT 24 HOUR URINE COLLECTION, SAFETY MEASURES IN PLACE, CALL LIGHT WITHIN REACH.
[2018-05-04 20:00] VITALS: BP 140/78
[2018-05-04] MEDS ORDERED: METOPROLOL 25 MG TAB PO SCH (21:00)
[2018-05-04] MEDS: METOPROLOL SUCCINATE 50 MG TABER PO SCH (21:36)
[2018-05-04] MEDS: DEXT 5% / NACL 0.45% 1,000 ML IV SCH (21:37)
--- NOTE | 2018-05-04 21:45 | NUR ---
DUE MEDS ADMINISTERED, PT AMBULATED TO BR WITH STEADY GAIT AND VOIDED FREELY, STARTED ON 24 HOUR URINE COLLECTION, IV OF D5 1/2 NS AT 10ML/H STARTED, ALL NEEDS ATTENDED.
--- NOTE | 2018-05-04 23:40 | NUR ---
PT SLEEPING, EASILY AROUSABLE, VITAL SIGNS STABLE, BP-125/60, HR-82, DENIES ANY PAIN, DR OSORIO MADE AWARE , STATED TO HOLD DUE HYDRALAZINE PO AT THIS TIME, CONTINUE TO MONITOR PT.
[2018-05-04] MEDS ORDERED: hydrALAZINE 25 MG TAB PO SCH (23:55)
[2018-05-05] VITALS: BP 125/60
[2018-05-05 04:00] VITALS: BP 143/91
--- NOTE | 2018-05-05 04:00 | NUR ---
PT SLEEPING, EASILY AROUSABLE, VITAL SIGNS TAKEN, BP-143/91, HR-80, PT STATED SHE WAS STRESSED YESTERDAY AND NOW SHE IS RELAXED, MONITORED CLOSELY.
[2018-05-05] MEDS: PANTOPRAZOLE 40 MG INJ VIAL IVP SCH (05:42)
--- NOTE | 2018-05-05 05:50 | NUR ---
DUE IV PROTONIX GIVEN, DENIES ANY PAIN, NO SOB NOTED, IVF INFUSING WELL, MONITORED CLOSELY.
--- NOTE | 2018-05-05 06:24 | NUR ---
PATIENT HAS BEEN SCREENED AND CATEGORIZED HIGH NUTRITION RISK. PATIENT WILL BE SEEN WITHIN 1-2 DAYS OF ADMISSION. 05/04/18-05/05/18 ISHAN FERRARO MS, RDN
--- NOTE | 2018-05-05 07:20 | NUR ---
PT AWAKE, NO SIGNS OF DISTRESS, REPORT GIVEN TO RN DOTTIE FOR CONTINUITY FOR CARE.
--- NOTE | 2018-05-05 07:21 | NUR ---
Received report from pm nurse Karl. Pt in bed, awake, verbally responsive, no c/o discomfort. Call light within reach. Pt verbalized understanding of ongoing 24hr urine collection. Right ac IV intact & asymptomatic with ongoing D5 1/2NS @ 10ml/hr. Left ac IV saline lock asymptomatic.
[2018-05-05 07:26] LABS: BASOPHILS % (AUTO) 0.7 % (0.0-2.0); EOSINOPHILS # (AUTO) 0.2 K/uL (0-0.4); EOSINOPHILS % (AUTO) 3.6 % (0.0-4.0); HEMATOCRIT 46.9 % (36-48); HEMOGLOBIN 15.4 g/dL (12.0-16.0); LYMPHOCYTES # (AUTO) 1.7 K/uL (2.5-16.5); LYMPHOCYTES % (AUTO) 24.2 % (20.5-51.1); MEAN CORPUSCULAR HEMOGLOBIN 27 pg (27-31); MEAN CORPUSCULAR HGB CONC 33 g/dL (33-37); MEAN CORPUSCULAR VOLUME 82.1 fL (80-94); MONOCYTES % (AUTO) 14.3 % (1.7-9.3); NEUTROPHILS % (AUTO) 57.2 % (42.2-75.2); PLATELET COUNT (AUTO) 224 K/uL (140-450); RED BLOOD CELL COUNT(AUTO) 5.71 MIL/uL (4.20-5.40); RED CELL DISTRIBUTION WIDTH 19.9 % (11.6-13.7); WHITE BLOOD COUNT (AUTO) 6.9 K/uL (4.8-10.8)
[2018-05-05 08:00] VITALS: BP 160/98
[2018-05-05 08:12] LABS: ANION GAP 11.3 (8-16); CARBON DIOXIDE 31.3 mmol/L (21-32); POTASSIUM 3.6 mmol/L (3.5-5.1)
[2018-05-05 08:13] LABS: CREATININE 0.9 mg/dL (0.6-1.3)
[2018-05-05] MEDS: HYDROCHLOROTHIAZIDE 25 MG TAB PO SCH (08:25)
[2018-05-05] MEDS: LISINOPRIL 20 MG TAB PO SCH (08:25)
[2018-05-05] MEDS: LORATADINE 10 MG TAB PO SCH (08:26)
[2018-05-05] MEDS: ASPIRIN 81 MG TAB.CHEW PO SCH (08:26)
[2018-05-05] MEDS: METOPROLOL SUCCINATE 50 MG TABER PO SCH (08:26)
[2018-05-05] MEDS: hydrALAZINE 25 MG TAB PO SCH ×3 (08:26→16:42)
[2018-05-05] MEDS: METOLAZONE 5 MG TAB PO SCH (08:27)
[2018-05-05] MEDS: CALCIUM CARBONATE 500 MG TAB PO SCH (08:27)
[2018-05-05] MEDS ORDERED: FUROSEMIDE 40 MG/4 ML VIAL IVP SCH (09:00)
[2018-05-05] MEDS ORDERED: hydrALAZINE 25 MG TAB PO SCH (09:00)
--- NOTE | 2018-05-05 09:06 | NUR ---
05/05/18 RD INITIAL ASSESSMENT COMPLETED PLEASE REFER TO NUTRITION ASSESSMENT UNDER CARE ACTIVITY FOR ESTIMATED NUTRITIONAL NEEDS. RD RECOMMENDATIONS: 1. CONTINUE ON BLAND/SOFT DIET TOLERATED. 2. CONSULT RDN PRN. 3. RD WILL F/U 3-5 DAYS; MODERATE RISK. ISHAN FERRARO MS, RDN
[2018-05-05] MEDS ORDERED: CALCIUM ACETATE 667 MG TAB PO SCH (09:52)
--- NOTE | 2018-05-05 10:15 | NUR ---
Pt resting in bed, no c/o discomfort, respirations even & nonlabored. Spouse at bedside visiting. Call light within reach.
[2018-05-05 12:00] VITALS: BP 134/88
--- NOTE | 2018-05-05 12:10 | NUR ---
Discharged pt at this time to home. Left unit via wheelchair with RN, augustin Cueto waiting in front lobby with private car. Pt able to amb from wheelchair to car with steady gait, no c/o discomfort, no signs of distress. Name band removed. All belongings with pt upon departure. Addendum: 05/05/18 at 1413 by Carolina Colby RN Wrong patient. Pls omit above note.
--- NOTE | 2018-05-05 12:20 | NUR ---
Pt sitting up at edge of bed, eating lunch. No c/o discomfort. FLACC 0. Right ac IV intact & asymptomatic with ongoing D5 1/2 NS @ 10ml/hr. Left ac IV saline lock asymptomatic. Call light within reach.
[2018-05-05 12:25] LABS: PROTHROMBIN TIME 11.5 secs (10.8-13.4)
[2018-05-05 12:34] LABS: ALBUMIN 3.2 g/dL (3.4-5.0); BILIRUBIN,DIRECT 10.9 mg/dL (0.0-0.3); TOTAL BILIRUBIN 12.8 mg/dL (0.0-1.0)
[2018-05-05] MEDS ORDERED: amLODIPine 5 MG TAB PO SCH ×2 (13:00→13:49)
[2018-05-05 16:00] VITALS: BP 134/83
--- NOTE | 2018-05-05 16:45 | NUR ---
Pt amb in hallway with steady gait, no signs of distress, no c/o discomfort. Able to maneuver IV pole with good safety awareness.
[2018-05-05] MEDS: ONDANSETRON 4 MG/2 ML VIAL IM/IVP PRN (18:11)
--- NOTE | 2018-05-05 18:11 | NUR ---
Pt c/o nausea after eating 50% of dinner. Zofran administered, HOB elevated to high fowlers. Ice chips provided for comfort. Advised pt to stay bedrest at this time, verbalized understanding. Call light within reach.
--- NOTE | 2018-05-05 19:10 | NUR ---
RECEIVED ENDORSEMENT FROM AM SHIFT RN DOTTIE; PATIENT A/Ox4, ABLE TO MAKE NEEDS KNOWN. NO SOB OR DISTRESS NOTED. IV SITE ON LEFT AC, INTACT AND PATENT WITH IVF RUNNING AT 10mL/HR. SKIN INTACT. PLAN OF CARE DISCUSSED, PATIENT EDUCATED ABOUT 24 HOUR URINE COLLECTION. BOARD UPDATED. BED IN THE LOWEST POSITION, CALL LIGHT WITHIN REACH. WILL CONTINUE TO MONITOR.
--- NOTE | 2018-05-05 19:20 | NUR ---
Report given to pm nurse Karl.
[2018-05-05 20:00] VITALS: BP 116/75
[2018-05-05] MEDS: DEXT 5% / NACL 0.45% 1,000 ML IV SCH (20:00)
--- NOTE | 2018-05-05 21:33 | NUR ---
ROUNDS DONE. PATIENT ASLEEP, EYES CLOSED, VISIBLE CHEST RISE AND FALL NOTED. WILL CONTINUE TO MONITOR.
[2018-05-06] VITALS: BP 124/71
--- NOTE | 2018-05-06 00:23 | NUR ---
BP-124/71, HR-74, PER DR JEAN TO HOLD DUE HYDRALAZINE PO AT THIS TIME.
--- NOTE | 2018-05-06 02:33 | NUR ---
ROUNDS DONE. PATIENT ASLEEP, EYES CLOSED, VISIBLE CHEST RISE AND FALL NOTED. WILL CONTINUE TO MONITOR.
[2018-05-06 04:00] VITALS: BP 101/59
--- NOTE | 2018-05-06 05:09 | NUR ---
ROUNDS DONE. PATIENT ASLEEP, EYES CLOSED, VISIBLE CHEST RISE AND FALL NOTED. NO SOB OR DISTRESS NOTED. WILL CONTINUE TO MONITOR.
[2018-05-06] MEDS: PANTOPRAZOLE 40 MG INJ VIAL IVP SCH (06:16)
[2018-05-06 06:45] LABS: ANION GAP 10.4 (8-16); CARBON DIOXIDE 30.1 mmol/L (21-32); CREATININE 1.9 mg/dL (0.6-1.3); POTASSIUM 3.5 mmol/L (3.5-5.1)
[2018-05-06 06:53] LABS: MAGNESIUM 2.1 mg/dL (1.8-2.4); PHOSPHORUS 5.7 mg/dL (2.5-4.9); PROTHROMBIN TIME 11.8 secs (10.8-13.4)
[2018-05-06 06:59] LABS: ALBUMIN 3.1 g/dL (3.4-5.0); BILIRUBIN,DIRECT 10.4 mg/dL (0.0-0.3); TOTAL BILIRUBIN 12.1 mg/dL (0.0-1.0)
--- NOTE | 2018-05-06 07:22 | NUR ---
ENDORSED PATIENT TO AM YAJAIRA SUH. PATIENT IN STABLE CONDITION.
--- NOTE | 2018-05-06 07:23 | NUR ---
RECEIVED BEDSIDE REPORT FROM [employer]ACT HAMMER OPERATOR NURSE. PATIENT [id number]. PATIENT ON ROOM AIR, NO DISTRESS NOTED. SKIN INTACT. PATIENT AMBULATORY AND CONTINENT. IV ON L AC 20 G SALINE LOCK, CLEAN DRY AND INTACT. IV ON R AC 22 G INFUSING NS AT 20, CLEAN DRY AND INTACT. PATIENT ON TELE MONITOR. BED IN LOW POSITION, CALL LIGHT WITHIN REACH. WILL CONTINUE TO MONITOR.
[2018-05-06 08:00] VITALS: BP 129/80
[2018-05-06 08:22] LABS: BASOPHILS % (AUTO) 0.4 % (0.0-2.0); EOSINOPHILS # (AUTO) 0.1 K/uL (0-0.4); EOSINOPHILS % (AUTO) 1.8 % (0.0-4.0); HEMATOCRIT 46.9 % (36-48); LYMPHOCYTES # (AUTO) 1.8 K/uL (2.5-16.5); LYMPHOCYTES % (AUTO) 23.2 % (20.5-51.1); MEAN CORPUSCULAR HEMOGLOBIN 27 pg (27-31); MEAN CORPUSCULAR HGB CONC 32 g/dL (33-37); MEAN CORPUSCULAR VOLUME 82.8 fL (80-94); MONOCYTES # (AUTO) 1.1 K/uL (0.8-1.0); MONOCYTES % (AUTO) 14.3 % (1.7-9.3); NEUTROPHILS # (AUTO) 4.7 K/uL (1.8-7.7); NEUTROPHILS % (AUTO) 60.3 % (42.2-75.2); PLATELET COUNT (AUTO) 254 K/uL (140-450); RED BLOOD CELL COUNT(AUTO) 5.66 MIL/uL (4.20-5.40); RED CELL DISTRIBUTION WIDTH 20.4 % (11.6-13.7); WHITE BLOOD COUNT (AUTO) 7.8 K/uL (4.8-10.8)
[2018-05-06] MEDS ORDERED: amLODIPine 5 MG TAB PO SCH (09:00)
[2018-05-06] MEDS ORDERED: FUROSEMIDE 40 MG TAB PO SCH (09:00)
[2018-05-06] MEDS ORDERED: SPIRONOLACTONE 25 MG TAB PO SCH (09:00)
[2018-05-06] MEDS ORDERED: LISINOPRIL 20 MG TAB PO SCH (09:00)
[2018-05-06] MEDS: ASPIRIN 81 MG TAB.CHEW PO SCH (09:09)
[2018-05-06] MEDS: LORATADINE 10 MG TAB PO SCH (09:10)
[2018-05-06] MEDS: CALCIUM CARBONATE 500 MG TAB PO SCH (09:10)
[2018-05-06] MEDS: METOLAZONE 5 MG TAB PO SCH (09:11)
[2018-05-06] MEDS: METOPROLOL SUCCINATE 50 MG TABER PO SCH (09:12)
[2018-05-06] MEDS: hydrALAZINE 25 MG TAB PO SCH ×2 (09:14)
[2018-05-06] MEDS: ONDANSETRON 4 MG/2 ML VIAL IM/IVP PRN (09:18)
--- NOTE | 2018-05-06 10:00 | NUR ---
FAMILY MEMBER AT BEDSIDE. PATIENT ON ROOM AIR, NO DISTRESS NOTED. WILL CONTINUE TO MONITOR.
[2018-05-06] MEDS ORDERED: FURO40TA9 PO (11:39)
[2018-05-06] MEDS ORDERED: HYDR100T79 PO (11:39)
[2018-05-06] MEDS ORDERED: SPIR25TA PO (11:39)
[2018-05-06] MEDS ORDERED: METO50TE2 PO (11:39)
[2018-05-06] MEDS ORDERED: AMLO10TA PO (11:39)
[2018-05-06] MEDS ORDERED: LISI-420 PO (11:39)
[2018-05-06 13:13] VITALS: BP 110/66
[2018-05-06] MEDS ORDERED: INFLUENZA VIRUS VACCINE QUAD 0.5 ML SYR IMVAC PRN (14:05)
[2018-05-06] MEDS ORDERED: PNEUMOCOCCAL VACCINE 23 MCG/0.5 ML VIAL IMVAC SCH (14:05)
--- NOTE | 2018-05-06 14:30 | NUR ---
EDUCATED PATIENT ON DISCHARGE INSTRUCTIONS. PATIENT EDUCATED ON FOLLOW UP APPOINTMENT AND PROVIDED WITH PACKET ADDRESS AND PHONE NUMBER. EDUCATED PATIENT ON NEW PRESCRIPTIONS AND SIDE EFFECTS OF MEDS. EDUCATED PATIENT TO VISIT NEAREST ER WHEN SHE HAS FEVER, SOB, INCREASED PAIN OR WORSENING OF SYMPTOMS. REMOVED IV ON L AC AND R AC, BOTH TIPS INTACT. ADMINISTERED FLU AND PNA VACCINE REQUESTED BY PATIENT. PATIENT VERBALIZED UNDERSTANDING. ANSWERED ALL QUESTIONS AND CONCERNS OF PATIENT.
[2018-05-17 09:13] LABS: HEPATITIS A ANTIBODY IGM Negative (Negative); HEPATITIS B CORE AB TOTAL Negative (Negative); HEPATITIS B SURFACE ANTIGEN Negative (Negative)
[2018-05-23 13:02] LABS: HEPATITIS B SURFACE ANTIBODY Non Reactive (.)
== END 2018-05-06 14:52 | disposition home or self-care (01) | DRG 190 ==
LOC: MED 21:02 → MTU 23:21
PROVIDERS: ADMIT General Practice; ATTEND General Practice
PROC: 3E0234Z Introduction of Serum, Toxoid and Vaccine into Muscle, Percutaneous Approach (ICD-10-PCS; principal; 2018-05-06)
PROC: 3E02340 Introduction of Influenza Vaccine into Muscle, Percutaneous Approach (ICD-10-PCS; 2018-05-06)
DX: I21.A1 Myocardial infarction type 2 (principal); N17.0 Acute kidney failure with tubular necrosis; I50.43 Acute on chronic combined systolic (congestive) and diastolic (congestive) heart failure; E43 Unspecified severe protein-calorie malnutrition; D68.9 Coagulation defect, unspecified; E66.01 Morbid (severe) obesity due to excess calories; E83.39 Other disorders of phosphorus metabolism; I27.21 Secondary pulmonary arterial hypertension; E87.8 Other disorders of electrolyte and fluid balance, not elsewhere classified; E44.0 Moderate protein-calorie malnutrition; I08.1 Rheumatic disorders of both mitral and tricuspid valves; I42.9 Cardiomyopathy, unspecified; N28.1 Cyst of kidney, acquired; K76.0 Fatty (change of) liver, not elsewhere classified; Z68.41 Body mass index [BMI] 40.0-44.9, adult; I16.1 Hypertensive emergency; N39.0 Urinary tract infection, site not specified; K57.90 Diverticulosis of intestine, part unspecified, without perforation or abscess without bleeding; K21.9 Gastro-esophageal reflux disease without esophagitis; I11.0 Hypertensive heart disease with heart failure; N20.0 Calculus of kidney; E78.5 Hyperlipidemia, unspecified; G47.33 Obstructive sleep apnea (adult) (pediatric); I50.82 Biventricular heart failure; B15.9 Hepatitis A without hepatic coma; E87.6 Hypokalemia; Z90.49 Acquired absence of other specified parts of digestive tract; Z79.899 Other long term (current) drug therapy; Z91.19 Patient's noncompliance with other medical treatment and regimen; Z82.5 Family history of asthma and other chronic lower respiratory diseases; Z82.49 Family history of ischemic heart disease and other diseases of the circulatory system; Z23 Encounter for immunization
CPT/HCPCS: 36415; 70450; 71045; 76705; 80048; 80053; 80076; 80305; 81001; 81025; 82140; 82150; 82248; 82550; 83036; 83605; 83690; 83735; 83835; 83880; 84100; 84443; 84484; 85025; 85610; 85730; 86644; 86694; 86704; 86706; 86708; 86709; 86803; 87040; 87081; 87086; 87340; 90658; 90732; 93005; 93975; 96361; 96374; 96375; 99285; C9113; G0482; J0696; J1644; J1940; J2060; J2270; J2405; J3490; J7030; J7060; Q0092

== ENCOUNTER 2019-04-11 15:26 | Inpatient (IN) | payer MEDICAID ==
[~2019-04-11] VITALS: Ht 160 cm; Wt 116.6 kg
[~2019-04-11 15:26] MED LIST changes: -ASPI-1718 PO; -ATOR20TA40 PO; -FURO-570 PO; +FURO40TA9 PO; -HYDR-3108 PO; -HYDR-4420 PO; +HYDR100T79 PO; +SPIR25TA PO
[2019-04-11 15:37] VITALS: BP 136/100
--- NOTE | 2019-04-11 15:44 | NUR ---
PT TO ER BED 5
--- NOTE | 2019-04-11 16:12 | NUR ---
CAME IN WITH C/O SOB FOR 4-5 DAYS, WITH BOTH LEGS SWELLING.
--- NOTE | 2019-04-11 16:13 | NUR ---
SEEN AND EXAMINED BY ECTOR WITH ORDERS AND CARRIED OUT.
[2019-04-11] MEDS ORDERED: FUROSEMIDE 40 MG/4 ML VIAL IVP ONE (16:30)
[2019-04-11 16:40] LABS: BASOPHILS % (AUTO) 0.4 % (0.0-2.0); EOSINOPHILS % (AUTO) 0.2 % (0.0-4.0); HEMATOCRIT 42.5 % (36-48); HEMOGLOBIN 13.5 g/dL (12.0-16.0); LYMPHOCYTES # (AUTO) 1.2 K/uL (2.5-16.5); MEAN CORPUSCULAR HEMOGLOBIN 27 pg (27-31); MEAN CORPUSCULAR HGB CONC 32 g/dL (33-37); MEAN CORPUSCULAR VOLUME 85.7 fL (80-94); MONOCYTES # (AUTO) 1.2 K/uL (0.8-1.0); MONOCYTES % (AUTO) 15.1 % (1.7-9.3); NEUTROPHILS # (AUTO) 5.4 K/uL (1.8-7.7); NEUTROPHILS % (AUTO) 69.3 % (42.2-75.2); PLATELET COUNT (AUTO) 158 K/uL (140-450); RED BLOOD CELL COUNT(AUTO) 4.96 MIL/uL (4.20-5.40); RED CELL DISTRIBUTION WIDTH 16.2 % (11.6-13.7); WHITE BLOOD COUNT (AUTO) 7.8 K/uL (4.8-10.8)
[2019-04-11 17:02] LABS: ALBUMIN 2.9 g/dL (3.4-5.0); ANION GAP 5.1 (8-16); CARBON DIOXIDE 34.6 mmol/L (21-32)
[2019-04-11 17:08] LABS: POTASSIUM 2.7 mmol/L (3.5-5.1)
[2019-04-11] MEDS ORDERED: ASPIRIN 325 MG TAB PO ONE (17:35)
--- NOTE | 2019-04-11 17:40 | NUR ---
Pt states she has not been on any medications at home for the past 6 months.
--- NOTE | 2019-04-11 17:45 | NUR ---
ALL RESULTS BACK AND NOTED BY ERMD AND FOR ADMISSION.ERMD AT BEDSIDE.
[2019-04-11] MEDS: NACL 0.9% 1,000 ML IV SCH (18:20)
[2019-04-11] MEDS ORDERED: HYDROcodone/APAP 7.5/325 MG 1 TAB PO PRN (18:20)
[2019-04-11] MEDS ORDERED: ONDANSETRON 4 MG/2 ML VIAL IVP PRN (18:20)
[2019-04-11] MEDS ORDERED: ACETAMINOPHEN 325 MG TAB PO PRN (18:20)
--- NOTE | 2019-04-11 18:28 | NUR ---
Patient will be admitted to care of DR. OLEARY. Admited to TELEMETRY. Will go to room 120 B. Belongings list completed. Report to MARIA DE JESUS GATES
--- NOTE | 2019-04-11 18:55 | NUR ---
RECEIVED REPORT FROM ER NURSE. PT CAME TO UNIT VIA WHEELCHAIR ACCOMPANIED BY MOTHER. PATIENT WALKED WITH A STEADY GAIT FROM WHEELCHAIR TO BED. BLOOD PRESSURE WAS HIGH AT 188/121. PT IS IN BED WITH MOTHER BY BEDSIDE. NO DISTRESS NOTED.
[2019-04-11 19:17] LABS: CHOL/HDL RATIO 9.3 (1-4.5); MAGNESIUM 1.8 mg/dL (1.8-2.4); PHOSPHORUS 1.7 mg/dL (2.5-4.9); THYROID STIMULATING HORMONE 0.85 uIU/mL (0.34-3.74)
[2019-04-11 19:30] VITALS: BP 200/120
--- NOTE | 2019-04-11 19:41 | NUR ---
SHIFT REPORT ENDORSED TO PROFESSOR OF LATIN [employer] STUDIES NURSE. PT IS IN BED IN STABLE CONDITION. CALL LIGHT IN REACH.
--- NOTE | 2019-04-11 19:41 | NUR ---
RECIEVED PT AAOX4 , O2 SAT. WNL . WITH HIGH BLOOD PRESSURE 200/120 - WILL REFER TO MIKEY . DENIES ANY KIND OF PAIN . RELATIVES ON BEDSIDE . IV SITE INTACT AND PATENT . ON SAFETY PRECAUTION PROTOCOL - CALL LIGHT WITHIN REACH - REMINDS THE USE OF CALL LIGHT WHENEVER SHE WANTS TO GO TO BATHROOM . ALTHOUGH PT HAS STEADY GAIT - STANDBY ASSIST DUE TO ON LASIX AND LOW POTASSIUM LEVEL . WALKS TO BATHROOM DENIIES DIZZINESS - STEADY GAIT . POC DISCUSSED AND VERBALIZED UNDERSTANDING . ON LOSELY MONITORING , ON DIRECTOR SKILLS. Addendum: 04/12/19 at 0243 by Malaika Pichardo RN THE WORD ON LOSELY MONITORING IS TYPOGRAPHICALLY ERROR INSTEAD ON CLOSELY MONITORING.- LITO
[2019-04-11 20:05] LABS: PROTHROMBIN TIME 11.5 secs (10.8-13.4)
--- NOTE | 2019-04-11 20:06 | NUR ---
REFER TO MIKEY - BP ,STILL HIGH INSPITE OF LASIX GIVEN - LATEST BP 220/120 - ASYMPTOMATIC.-WAITING THE FURTHER ORDERS - KEEP ON MONITORING.
[2019-04-11] MEDS: hydrALAZINE 20 MG/ML VIAL IVP PRN (20:21)
--- NOTE | 2019-04-11 21:21 | NUR ---
PLT 158 -MIKEY GAVE GO SIGNAL TO GIVE DUE HEPARIN SQ.C/O AMADOR.
[2019-04-11] MEDS: DOCUSATE SODIUM 100 MG GELCAP PO SCH (21:25)
[2019-04-11 22:04] LABS: APPEARANCE,URINE CLEAR (CLEAR); BILIRUBIN,URINE NEGATIVE (NEGATIVE); BLOOD, URINE 1+ (NEGATIVE); LEUKOCYTE ESTERASE ,URINE NEGATIVE (NEGATIVE); NITRITE, URINE NEGATIVE (NEGATIVE); UGLUCOSE NEGATIVE (NEGATIVE)
[2019-04-11 22:05] LABS: COLOR,URINE STRAW (YELLOW)
[2019-04-11 22:09] LABS: BARBITURATE, URINE NEG. ng/ml (NEG <=200); BENZODIAZEPINE, URINE NEG. ng/mL (NEG <=200); CANNABINOID, URINE NEG. ng/mL (NEG <=50); COCAINE, URINE NEG. ng/mL (NEG <=300); OPIATE, URINE NEG. ng/mL (NEG <=2000); PHENCYCLIDINE SCREEN,URINE NEG. ng/mL (NEG <=25)
[2019-04-11 22:12] LABS: RBC,URINE NONE SEEN /HPF (0-5)
[2019-04-11 22:13] LABS: WBC,URINE NONE SEEN /HPF (0-5)
--- NOTE | 2019-04-11 22:32 | NUR ---
INFORMED DR. LAKE - PT HAS LOW SERUM KOTASSIUM LEVEL AND PHOSPORUS - WAITING FOR FURTHER ORDERS. Addendum: 04/11/19 at 2235 by Malaika Pichardo RN THE ABOVE WORD " KOTASSIUM " IS AN TYPOGRAPHICALLY ERROR , INSTEAD POTASSIUM.- LITO
--- NOTE | 2019-04-11 23:15 | NUR ---
INFORMED DR. LAKE PT C/O UNABLE TO SLEEP AND REQUESTING MEDICINE FOR IT. UPDATING THE MIKEY ABOUT LATEST BP 180/110 .- WAITING FOR FURTHER ORDERS.
[2019-04-11] MEDS: ZOLPIDEM 5 MG TAB PO PRN (23:33)
--- NOTE | 2019-04-11 23:36 | NUR ---
AMBIEN TABLET 5MG 1 TAB. P.O GIVEN ORDERED - WILL CONT. TO MONITOR. CALL LIGHT WITHIN REACH - REMINDS HER THE USE OF CALL LIGHT WHENEVER SHE WANT TO GO TO BATHROOM .
[2019-04-12] VITALS: BP 180/110
--- NOTE | 2019-04-12 01:30 | NUR ---
REFER TO DR. LAKE BECAUSE THE BP IS STILL HIGH INSPITE OF LASIX TIV AND APRESOLINE TIV GIVEN TOO . DR Anusha LAKE MADE NEW ORDERS AND CARRIED OUT - WILL GIVE LOPRESSOR /TAB ONCE.
[2019-04-12] MEDS ORDERED: METOPROLOL 50 MG TAB PO SCH (02:00)
[2019-04-12 04:00] VITALS: BP 180/110
[2019-04-12] MEDS: hydrALAZINE 20 MG/ML VIAL IVP PRN ×3 (05:11→21:07)
--- NOTE | 2019-04-12 05:11 | NUR ---
APRESOLINE 0.5MG TIV GIVEN ORDERED - WILL CLOSELY MONITOR BP . PT. REQUESTING VACCINATION FOR FLU AND PNA -WILL ENDORSE THE REQUEST OF THE PT.
[2019-04-12 05:54] LABS: ANION GAP 7.1 (8-16); CARBON DIOXIDE 35.7 mmol/L (21-32)
[2019-04-12] MEDS ORDERED: POTASSIUM CHLORIDE 10 MEQ TABER PO SCH (06:00)
[2019-04-12 06:01] LABS: POTASSIUM 2.8 mmol/L (3.5-5.1)
--- NOTE | 2019-04-12 06:11 | NUR ---
BP RE CHECKED 175/105 -STILL ON MONITORING .NO C/O CHEST PAIN OR WILSON - SR ON CARDIAC MONITORING.
[2019-04-12] MEDS ORDERED: SODIUM PHOS / POTASSIUM PHOS 1 PKT PDR PO ONE (07:00)
--- NOTE | 2019-04-12 07:18 | NUR ---
ENDORSED TO AM SHIFT FOR CONT. OF CARE W/ STABLE CONDITION. I ENDORSED TO AM SHIFT NOD ABOUT POTASSIUM ORDERED BY MIKEY . I GAVE ALREADY K DUR TAB. BUT THE IV POTASSIUM IS NOT YET GIVEN - PENDING BECAUSE STILL ON VERIFICATION BY PHARMACIST. REQUEST FOR VACCINE ALSO ENDORSED.
--- NOTE | 2019-04-12 07:19 | NUR ---
RECEIVED PT AAOX4, SITTING BY SIDE OF BED. RESPIRATIONS EVEN AND UNLABORED ON ROOM AIR. NO S/S OF SOB OR DISTRESS NOTED. IV SITE INTACT AND PATENT, INFUSING IVF WELL. PATIENT DENIES PAIN AT THIS TIME. UPDATED BOARD. UPDATED PATIENT WITH PLAN OF CARE. SHE VERBALIZED UNDERSTANDING. SAFETY PRECAUTIONS IN PLACE, CALL LIGHT WITHIN REACH, WILL CONTINUE TO MONITOR PATIENT.
[2019-04-12 07:45] LABS: EOSINOPHILS % (AUTO) 0.3 % (0.0-4.0); MEAN CORPUSCULAR HEMOGLOBIN 27 pg (27-31)
[2019-04-12 08:00] VITALS: BP 161/88
[2019-04-12 08:35] LABS: BASOPHILS % (AUTO) 0.5 % (0.0-2.0); HEMATOCRIT 42.9 % (36-48); HEMOGLOBIN 13.7 g/dL (12.0-16.0); LYMPHOCYTES # (AUTO) 1.3 K/uL (2.5-16.5); LYMPHOCYTES % (AUTO) 21.5 % (20.5-51.1); MEAN CORPUSCULAR HGB CONC 32 g/dL (33-37); MEAN CORPUSCULAR VOLUME 85.5 fL (80-94); MONOCYTES # (AUTO) 0.6 K/uL (0.8-1.0); MONOCYTES % (AUTO) 10.8 % (1.7-9.3); NEUTROPHILS % (AUTO) 66.9 % (42.2-75.2); PLATELET COUNT (AUTO) 145 K/uL (140-450); RED BLOOD CELL COUNT(AUTO) 5.02 MIL/uL (4.20-5.40); RED CELL DISTRIBUTION WIDTH 16.1 % (11.6-13.7)
[2019-04-12] MEDS: METOPROLOL SUCCINATE 50 MG TABER PO SCH (08:44)
[2019-04-12] MEDS: FAMOTIDINE 20 MG TAB PO SCH (08:44)
[2019-04-12] MEDS: DOCUSATE SODIUM 100 MG GELCAP PO SCH ×2 (08:44→21:00)
[2019-04-12] MEDS: FUROSEMIDE 40 MG/4 ML VIAL IVP SCH ×2 (08:45→16:15)
[2019-04-12] MEDS: SPIRONOLACTONE 25 MG TAB PO SCH (08:47)
--- NOTE | 2019-04-12 08:47 | NUR ---
PATIENT HAS BEEN SCREENED AND CATEGORIZED HIGH NUTRITION RISK. PATIENT WILL BE SEEN WITHIN 1-2 DAYS OF ADMISSION. 04/12/2019-04/13/[address]
--- NOTE | 2019-04-12 08:55 | NUR ---
ORDERED MEDICATIONS GIVEN. PATIENT TOLERATED THEM WELL. NO COMPLAINTS AT THIS TIME. CALL LIGHT WITHIN REACH, WILL CONTINUE TO MONITOR PATIENT.
[2019-04-12] MEDS ORDERED: POTASSIUM CHLORIDE 40 MEQ, LIDOCAINE 1% 25 MG in NACL 0.9% 250 ML IV SCH ×2 (09:00→15:00)
[2019-04-12] MEDS ORDERED: LISINOPRIL 10 MG TAB PO SCH ×2 (09:00→15:00)
--- NOTE | 2019-04-12 09:36 | NUR ---
ORDERED POTASSIUM RIDER GIVEN. PATIENT TOLERATING IT WELL. NO COMPLAINTS AT THIS TIME. EDUCATED PATIENT ABOUT HER DIAGNOSIS AND MEDICATIONS. PATIENT VERBALIZED UNDERSTANDING. CALL LIGHT WITHIN REACH, WILL CONTINUE TO MONITOR PATIENT.
--- NOTE | 2019-04-12 11:23 | NUR ---
DC PLANN[age] YRS OLD FEMALE PATIENT WAS ADMITTED FROM HOME WITH A DX OF CHF , AND HYPOKALEMIA. PT HAS A HX OF HTN, AND CHF. BNP ELEVATED 1330 ,CXR ACUTE CHF EXACERBATION, K+ 2.7 , AND ELEVATED TROP 1.218. ADMINISTERED 40 MG OF LASIX FOR CHF, K-RIDER FOR LOW POTASSIUM, ORDERED CARDIOLOGY CONSULT WITH DR ROMAN Sung , ECHO AND REPEAT EKG. DC PLAN TO GO HOME WHEN STABLE. CM TO FOLLOW. Addendum: 04/14/19 at 1208 by Cheryl Núñez CM DC PLANNING: SEEN BY AUTOMOTIVE SERVICES MANAGER DR ROMAN Sung ORDERED TO CONTINUE CURRENT MEDS AND TO KEEP FLUID RESTRICTION TO 1.5L/DAY, LASIX 40 MG IV DAILY AND RECOMMENDED TO ARRANGED LEXISCAN IF IT IS NOT BEING DONE IN THE LAST 6 MONTH. CM TO FOLLOW.
[2019-04-12 11:39] VITALS: BP 162/88
--- NOTE | 2019-04-12 12:03 | NUR ---
BP ELEVATED, PRN HYDRALAZINE GIVEN. PATIENT TOLERATING IT WELL. NO COMPLAINTS AT THIS TIME. WILL REASSESS BP. CALL LIGHT WITHIN REACH, WILL CONTINUE TO MONITOR PATIENT.
[2019-04-12 12:29] LABS: MAGNESIUM 1.8 mg/dL (1.8-2.4); PHOSPHORUS 2.2 mg/dL (2.5-4.9)
--- NOTE | 2019-04-12 14:33 | NUR ---
04/12/2019 RD INITIAL ASSESSMENT COMPLETED PLEASE REFER TO NUTRITION ASSESSMENT UNDER CARE ACTIVITY FOR ESTIMATED NUTRITIONAL NEEDS. RD RECOMMENDATIONS: 1. RECOMMEND CHANGING PTS DIET TO CARDIAC DIET D/T PT WITH PMH OF HTN AND CHF. 2. RD WILL F/U 7 DAYS; LOW RISK. VENKAT IRENE, LUKAS
--- NOTE | 2019-04-12 15:28 | NUR ---
2ND K RIDER BAG GIVEN AND ONE TIME DOSE MEDICATION. PATIENT TOLERATING IT WELL. NO COMPLAINTS AT THIS TIME. ECHO FINISHED, WILL WAIT FOR RESULTS. CALL LIGHT WITHIN REACH, WILL CONTINUE TO MONITOR PATIENT.
[2019-04-12 15:39] VITALS: BP 131/89
--- NOTE | 2019-04-12 16:15 | NUR ---
ORDERED MEDICATION GIVEN. PATIENT TOLERATING WELL. NO COMPLAINTS AT THIS TIME. CALL LIGHT WITHIN REACH. WILL CONTINUE TO MONITOR.
[2019-04-12] MEDS: NACL 0.9% 1,000 ML IV SCH (17:44)
--- NOTE | 2019-04-12 19:19 | NUR ---
Report given to marketing administrator nurse at bedside for continuity of care. Patient in stable condition, family at bedside.
--- NOTE | 2019-04-12 19:20 | NUR ---
RECEIVED REPORT AT BEDSIDE FORM [place] RN DAYSHIFT NURSE AT BEDSIDE, PT IN STABLE CONDITION. SITTING ON BED W FAMILY AND HAS NO S/S OF PAIN OR DISTRESS NOTED. PT HAS LAC 20G INTACT AND ASYMPTOMATIC AND RUNNING NORMAL SALINE AT 20MLS/HR. V/S FOLLOWS: T 97.1 P 90 R 18 B/P 166/99 02 97% ON ROOM AIR. RESPIRATIONS EVEN AND UNLABORED. BED LOW WITH SIDE RAILS UP AND CALL CAZARES IN REACH.
[2019-04-12 20:00] VITALS: BP 166/99
[2019-04-12] MEDS: SODIUM PHOS / POTASSIUM PHOS 1 PKT PDR PO SCH (21:04)
[2019-04-12] MEDS: ZOLPIDEM 5 MG TAB PO PRN (21:25)
--- NOTE | 2019-04-12 21:30 | NUR ---
PT GIVEN ORDERED, NEUTRA-PHOS WELL ORDERED HEPARIN. EDUCATION REGARDING MEDICATION INCLUDING SIDE EFFECTS PROVIDED AT BEDSIDE. PT DECLINED THE ORDERED COLACE, RISKS AND BENEFITS EXPLAINED, SHE SAID THAT SHE WILL TAKE TOMORROW MORNING WHEN IT'S ORDERED. PT WAS GIVEN PRN HYDRALAZINE IVP 10MG FOR HTN SPB OVER 160 AND REQUESTED AMBIEN FOR INSOMNIA. WILL RECHECK B/P LATER, PT CARRIE ANY PAIN OR DISTRESS AT THIS TIME. BED LOW SIDE RAILS UP AND CALL CAZARES IN REACH.
--- NOTE | 2019-04-12 22:30 | NUR ---
[place] FROM THE LAB CALLED TO REPORT A CRITICAL TROPONIN 1.113 WHICH IS TRENDING DOWN. MD RESIDENT DR. LAKE MADE AWARE. MD ROMAN PUENTES, HERE FOR CARDIAC CONSULT. MD OWENS LOOKED AT LABS AND SAID THAT HE WILL READ ECHO RESULTS TOMORROW. RETAKE OF B/P IS P 95 B/P 169/100. PT ASLEEP NO S/S OF PAIN OR DISTRESS NOTED. WILL RECHECK B/P LATER.
[2019-04-13] VITALS: BP 164/94
--- NOTE | 2019-04-13 01:30 | NUR ---
PT IN BED SLEEPING NO S/S OF PAIN OR DISTRESS NOTED V/S FOLLOWS: T 97.0 P 92 R 18 B/P 168/112 02 93% ON ROOM AIR. MD LAKE MADE AWARE THAT PT B/P REMAINS HIGH, HE SAID TO REASSESS AROUND 3 PM , IF STILL HIGH TO GO AHEAD AND GIVEN 1 AM B/P MEDICATION. METOPROLOL.
--- NOTE | 2019-04-13 03:00 | NUR ---
RETAKE OF PT B/P IS 164/94 PT GIVEN DAILY AM MEDICATION OF METOPROLOL SUCCINATE 50MG FOR INCREASE B/P. PT ALSO C/O MODERATE CHEST PAIN FROM COUGHING. SHE WAS GIVEN A NORCO 7.5MG /325MG . ALSO UPDATE MD LAKE REGARDING PT B/P. PT ALSO REQUESTED PRN COUGH MEDS. MADE AWARE AND SAID THAT HE WILL ORDER PRN COUGH MED.
[2019-04-13] MEDS: METOPROLOL SUCCINATE 50 MG TABER PO SCH ×2 (03:01→08:30)
[2019-04-13 04:00] VITALS: BP 138/79
[2019-04-13 06:30] LABS: BASOPHILS % (AUTO) 0.5 % (0.0-2.0); EOSINOPHILS # (AUTO) 0.1 K/uL (0-0.4); EOSINOPHILS % (AUTO) 2.1 % (0.0-4.0); HEMATOCRIT 41.7 % (36-48); HEMOGLOBIN 13.3 g/dL (12.0-16.0); LYMPHOCYTES # (AUTO) 1.8 K/uL (2.5-16.5); LYMPHOCYTES % (AUTO) 30.1 % (20.5-51.1); MEAN CORPUSCULAR HEMOGLOBIN 28 pg (27-31); MEAN CORPUSCULAR HGB CONC 32 g/dL (33-37); MEAN CORPUSCULAR VOLUME 86.3 fL (80-94); MONOCYTES # (AUTO) 0.7 K/uL (0.8-1.0); MONOCYTES % (AUTO) 12.5 % (1.7-9.3); NEUTROPHILS # (AUTO) 3.3 K/uL (1.8-7.7); NEUTROPHILS % (AUTO) 54.8 % (42.2-75.2); PLATELET COUNT (AUTO) 142 K/uL (140-450); RED BLOOD CELL COUNT(AUTO) 4.83 MIL/uL (4.20-5.40); RED CELL DISTRIBUTION WIDTH 16.4 % (11.6-13.7)
[2019-04-13 07:08] LABS: ANION GAP 7.5 (8-16); CARBON DIOXIDE 34.3 mmol/L (21-32); CREATININE 0.9 mg/dL (0.6-1.3)
[2019-04-13 07:15] LABS: MAGNESIUM 1.6 mg/dL (1.8-2.4); PHOSPHORUS 3.4 mg/dL (2.5-4.9)
[2019-04-13 07:30] LABS: POTASSIUM 2.8 mmol/L (3.5-5.1)
--- NOTE | 2019-04-13 07:30 | NUR ---
RECEIVED REPORT FROM BOX OFFICE ATTENDANT NURSE. PT IS IN BED IN STABLE CONDITION. CALL LIGHT IN REACH.
[2019-04-13 08:00] VITALS: BP_SYST 147; BP_SYST 176; BP_DIAS 106; BP_DIAS 83
[2019-04-13] MEDS: SODIUM PHOS / POTASSIUM PHOS 1 PKT PDR PO SCH ×2 (08:29→20:30)
[2019-04-13] MEDS: FUROSEMIDE 40 MG/4 ML VIAL IVP SCH ×2 (08:29→16:39)
[2019-04-13] MEDS: POTASSIUM CHLORIDE 10 MEQ TABER PO SCH (08:29)
[2019-04-13] MEDS: LISINOPRIL 20 MG TAB PO SCH (08:30)
[2019-04-13] MEDS: FAMOTIDINE 20 MG TAB PO SCH (08:30)
[2019-04-13] MEDS: DOCUSATE SODIUM 100 MG GELCAP PO SCH ×2 (08:30→20:30)
[2019-04-13] MEDS: SPIRONOLACTONE 25 MG TAB PO SCH (08:31)
[2019-04-13] MEDS ORDERED: POTASSIUM CHLORIDE 40 MEQ, LIDOCAINE 1% 25 MG in NACL 0.9% 250 ML IV SCH (09:30)
--- NOTE | 2019-04-13 09:30 | NUR ---
PT IS IN BED STABLE CONDITION. NO COMPLAINS OF PAIN. CALL LIGHT IN REACH.
[2019-04-13] MEDS: ATORVASTATIN 20 MG TAB PO SCH (09:38)
--- NOTE | 2019-04-13 11:30 | NUR ---
PT IS SITTING IN BED IN STABLE CONDITION. NO COMPLAINS OF PAIN. CALL LIGHT IN REACH.
[2019-04-13 12:00] VITALS: BP 172/114
[2019-04-13] MEDS: hydrALAZINE 20 MG/ML VIAL IVP PRN ×3 (12:13→18:12)
--- NOTE | 2019-04-13 13:30 | NUR ---
PT IS SITTING IN BED IN STABLE CONDITION. NO COMPLAINS OF PAIN. CALL LIGHT IN REACH.
[2019-04-13] MEDS ORDERED: MAG SULF 2000 MG/WATER PREMIX 50 ML IV SCH (14:00)
--- NOTE | 2019-04-13 15:00 | NUR ---
PT IS SITTING IN BED IN STABLE CONDITION. NO DISTRESS NOTED. CALL LIGHT IN REACH.
[2019-04-13 16:00] VITALS: BP 172/119
--- NOTE | 2019-04-13 17:31 | NUR ---
PT IS RESTING IN BED. PT HAS NO SIGNS OF DISTRESS OR COMPLAINS OF PAIN. CALL LIGHT IN REACH
[2019-04-13] MEDS: NACL 0.9% 1,000 ML IV SCH (18:20)
--- NOTE | 2019-04-13 19:23 | NUR ---
SHIFT REPORT GIVEN TO TOOL CHASER NURSE. PT IS IN STABLE CONDITION. CALL LIGHT IN REACH.
--- NOTE | 2019-04-13 19:29 | NUR ---
RECEIVED BEDSIDE REPORT FROM DAY SHIFT NURSE. PATIENT IS AWAKE, ALERT, AND COOPERATIVE. RESPIRATION EVEN UNLABORED ON ROOM AIR. NO DISTRESS NOTED. SKIN IS WARM AND DRY. IV INTACT AND PLACE. PLAN OF CARE WAS DISCUSSED. ALL SAFETY MEASURES IN PLACE. BED IS AT LOW POSITION. CALL LIGHT WITHIN REACH AND VERBALIZES ITS USE. WILL CONTINUE TO MONITOR.
[2019-04-13 20:00] VITALS: BP 173/111
--- NOTE | 2019-04-13 20:05 | NUR ---
INITIAL ASSESSMENT DONE. VITALS WERE TAKEN. PATIENT BP IS ELEVATED. WILL CONTINUE TO MONITOR.
--- NOTE | 2019-04-13 20:30 | NUR ---
ALL SCHEDULED MEDS WERE GIVEN PER ORDER. PATIENT IS ANXIOUS. CHECKED BP. BP IS 175/111. WILL NOTIFY
[2019-04-13] MEDS ORDERED: LORazepam 2 MG/ML VIAL IVP PRN (20:50)
--- NOTE | 2019-04-13 21:25 | NUR ---
RETAKE VITALS PATIENT BP 175/111 HR 87. ORDER TO GIVE ATIVAN FIRST THEN RETAKE VITALS.
--- NOTE | 2019-04-13 22:30 | NUR ---
RECHECKED PATIENT. PATIENT SLEEPING RESPIRATION EVEN UNLABORED ON ROOM AIR. NO DISTRESS NOTED. WILL CONTINUE TO MONITOR.
[2019-04-14] VITALS: BP 162/116
--- NOTE | 2019-04-14 00:14 | NUR ---
VITALS WERE TAKEN. PATIENT IN STABLE CONDITION. NO DISTRESS NOTED. WILL CONTINUE TO MONITOR.
--- NOTE | 2019-04-14 02:31 | NUR ---
PATIENT SLEEPING RESPIRATION EVEN UNLABORED ON ROOM AIR. NO DISTRESS NOTED. WILL CONTINUE TO MONITOR.
[2019-04-14 04:00] VITALS: BP 188/108
--- NOTE | 2019-04-14 04:00 | NUR ---
VITALS WERE TAKEN. PATIENT BP 188/108 HR 88. PRN BP MEDS ADMINISTERED PER ORDER. NO DISTRESS NOTED. WILL CONTINUE TO MONITOR.
[2019-04-14] MEDS: hydrALAZINE 20 MG/ML VIAL IVP PRN ×2 (04:03→10:19)
--- NOTE | 2019-04-14 07:09 | NUR ---
ENDORSED PATIENT TO DAY SHIFT NURSE. PATIENT IN STABLE CONDITION.
--- NOTE | 2019-04-14 07:11 | NUR ---
RECEIVED REPORT FROM NIGHT YAJAIRA MARTIN. PATIENT IS SLEEPING, VISIBLE CHEST RISE AND FALL. FULL CODE, NKA. PT IS AMBULATORY, AAOX4, IV TO L AC 20G WITH NS AT TKO RATE. PATIENT IS STRICT I&O- LIMITED TO 1.5L Addendum: 04/14/19 at 0719 by Nadya Mills RN CONTINUED- LIMITED TO 1.5L/DAY. PATIENTS BP HAS BEEN RUNNING HIGH, HAS HYDRALAZINE Q6H PRN PER PARAMETERS. WILL REVIEW AND CONTINUE WITH PLAN OF CARE FOR THE DAY
[2019-04-14 08:00] VITALS: BP 173/104
[2019-04-14 08:26] LABS: BASOPHILS % (AUTO) 0.4 % (0.0-2.0); EOSINOPHILS # (AUTO) 0.2 K/uL (0-0.4); EOSINOPHILS % (AUTO) 3.3 % (0.0-4.0); HEMATOCRIT 44.4 % (36-48); HEMOGLOBIN 14.1 g/dL (12.0-16.0); LYMPHOCYTES # (AUTO) 1.8 K/uL (2.5-16.5); MEAN CORPUSCULAR HEMOGLOBIN 28 pg (27-31); MEAN CORPUSCULAR HGB CONC 32 g/dL (33-37); MEAN CORPUSCULAR VOLUME 86.6 fL (80-94); MONOCYTES # (AUTO) 0.7 K/uL (0.8-1.0); MONOCYTES % (AUTO) 9.6 % (1.7-9.3); NEUTROPHILS # (AUTO) 4.4 K/uL (1.8-7.7); NEUTROPHILS % (AUTO) 61.7 % (42.2-75.2); PLATELET COUNT (AUTO) 157 K/uL (140-450); RED BLOOD CELL COUNT(AUTO) 5.13 MIL/uL (4.20-5.40); RED CELL DISTRIBUTION WIDTH 16.5 % (11.6-13.7); WHITE BLOOD COUNT (AUTO) 7.1 K/uL (4.8-10.8)
[2019-04-14 08:27] LABS: ANION GAP 9.4 (8-16); CARBON DIOXIDE 32.2 mmol/L (21-32); CREATININE 0.8 mg/dL (0.6-1.3); POTASSIUM 3.6 mmol/L (3.5-5.1)
[2019-04-14 08:30] LABS: MAGNESIUM 1.9 mg/dL (1.8-2.4); PHOSPHORUS 3.9 mg/dL (2.5-4.9)
[2019-04-14] MEDS: DOCUSATE SODIUM 100 MG GELCAP PO SCH (08:41)
[2019-04-14] MEDS: POTASSIUM CHLORIDE 10 MEQ TABER PO SCH (08:42)
[2019-04-14] MEDS: ATORVASTATIN 20 MG TAB PO SCH (08:43)
[2019-04-14] MEDS: METOPROLOL SUCCINATE 50 MG TABER PO SCH (08:43)
[2019-04-14] MEDS: FUROSEMIDE 40 MG/4 ML VIAL IVP SCH (08:43)
[2019-04-14] MEDS: LISINOPRIL 20 MG TAB PO SCH (08:44)
[2019-04-14] MEDS: FAMOTIDINE 20 MG TAB PO SCH (08:44)
[2019-04-14] MEDS: SODIUM PHOS / POTASSIUM PHOS 1 PKT PDR PO SCH (08:45)
--- NOTE | 2019-04-14 08:54 | NUR ---
ADMINISTERED MORNING MEDICATION PATIENT TOLERATED WELL. GAVE PATIENT TYLENOL FOR HEADACHE. PATIENT IS TO BE DISCHARGED TO HOME TODAY. WILL F/U
[2019-04-14] MEDS ORDERED: SPIRONOLACTONE 50 MG TAB PO SCH (09:00)
--- NOTE | 2019-04-14 10:15 | NUR ---
ADMINISTERED HYDRALAZINE IVP 10MG FOR BP 195/116. DR MCKEON MADE AWARE. WILL RE ASSESS BP AFTER ONE HOUR
--- NOTE | 2019-04-14 11:04 | NUR ---
Facilities Specialist Note: Basic Screen: Yes High Risk DC Screen [place]: TRISTIN [place] JR Home Relationship: Pre-Admission Living Arrangements: Lives with Other Prior ADL Independent Current Home Health Name/Tel: N/A Current DME/02 Name/Tel: N/A Current Hospice Name/Tel: N/A Current Dialysis Name/Tel: N/A Healthcare Decision Maker: Patient Advance Directive No - REFUSED Physician Orders for Life Sustaining Treatment Form No Patient/Family Have Educational Needs No Information Taught: Advance Directive Person Taught: Patient Teaching Tools: Verbal Factors Affecting Learning: None Participation Level: Refused Evaluation: Verbalizes Understanding Needs Additional Education: No Discipline: Case Mgt/Social Svcs Tentative Discharge Plan/Destination: No Needs Identified Will require assistance post discharge: No Referred to Self Rising Flour Mixer: No Tentative Discharge Plan Summary: Patient is a 38-year-old female admitted for CHF and hypo k. Patient has PMHX of cardiac disorders and hypertension. Patient was admitted from home. SW met with patient at bedside to verify demographics. Patient reports no history of mental health and no history of substance abuse. SW provided education regarding advanced directuve, but patient refused. Patient's tentative discharge plan is to return home. No further needs identified. Signature: THUAN Hawkins Date: Apr 14, 2019 Time: 11:02
--- NOTE | 2019-04-14 11:16 | NUR ---
BP CAME DOWN TO 170/105. DR MCKEON MADE AWARE. WILL ADMINISTER CATAPRES FOR BP
[2019-04-14 12:00] VITALS: BP 124/72
[2019-04-14 12:59] VITALS: BP 124/72
[2019-04-14] MEDS ORDERED: cloNIDine 0.1 MG TAB PO SCH ×2 (13:00)
--- NOTE | 2019-04-14 13:00 | NUR ---
RE-ASSESSED BP AFTER CATAPRES, BP OF 124/72. INFORMED DR MCKEON.
[2019-04-14] MEDS ORDERED: ATOR20TA40 PO (13:55)
[2019-04-14] MEDS ORDERED: FURO-572 PO (13:55)
[2019-04-14] MEDS ORDERED: FAMO20TA13 PO (13:55)
[2019-04-14] MEDS ORDERED: METO50TE2 PO (13:55)
[2019-04-14] MEDS ORDERED: SPIR50TA PO (13:55)
[2019-04-14] MEDS ORDERED: CLON0.1T42 PO (13:55)
[2019-04-14] MEDS ORDERED: LISI-420 PO (13:55)
--- NOTE | 2019-04-14 15:19 | NUR ---
PATIENT SIGNED DC PAPERWORK. REMOVED IV LINE, CANNULA INTACT. PATIENT TOOK ALL PAPERWORK WITH HER. FAMILY WILL BE ARRIVING SOON TO PICKUP PATIENT.
--- NOTE | 2019-04-14 15:30 | NUR ---
PATIENT HAS BEEN DISCHARGED TO HOME. ALL BELONGINGS SENT WITH PATIENT
[2019-04-15] MEDS ORDERED: METOPROLOL SUCCINATE 50 MG TABER PO SCH (09:00)
[2019-04-15] MEDS ORDERED: FUROSEMIDE 40 MG/4 ML VIAL IVP SCH (09:00)
== END 2019-04-14 15:25 | disposition home or self-care (01) | DRG 194 ==
LOC: MED 15:26 → MTU 18:20
PROVIDERS: ADMIT General Practice; ATTEND General Practice
DX: I11.0 Hypertensive heart disease with heart failure (principal); I21.A1 Myocardial infarction type 2; E43 Unspecified severe protein-calorie malnutrition; I27.20 Pulmonary hypertension, unspecified; E83.39 Other disorders of phosphorus metabolism; Z68.42 Body mass index [BMI] 45.0-49.9, adult; I50.43 Acute on chronic combined systolic (congestive) and diastolic (congestive) heart failure; I42.9 Cardiomyopathy, unspecified; E87.6 Hypokalemia; E78.5 Hyperlipidemia, unspecified; I16.1 Hypertensive emergency; E66.09 Other obesity due to excess calories; D72.829 Elevated white blood cell count, unspecified; Z90.49 Acquired absence of other specified parts of digestive tract; Z79.899 Other long term (current) drug therapy; Z82.5 Family history of asthma and other chronic lower respiratory diseases; Z81.8 Family history of other mental and behavioral disorders; Z83.79 Family history of other diseases of the digestive system; Z82.49 Family history of ischemic heart disease and other diseases of the circulatory system; Z91.19 Patient's noncompliance with other medical treatment and regimen
CPT/HCPCS: 36415; 71045; 80048; 80053; 80305; 81001; 83036; 83605; 83690; 83735; 83880; 84100; 84443; 84484; 85025; 85610; 85730; 87081; 93005; 96374; 99285; J0360; J1644; J1940; J2001; J2060; J3475; J3480; J7030; Q0092

== ENCOUNTER 2019-11-04 22:42 | Emergency (ER) | payer MEDICAID ==
[~2019-11-04] VITALS: Ht 157.5 cm; Wt 65.8 kg
[~2019-11-04 22:42] MED LIST changes: -AMLO10TA PO; +ATOR20TA40 PO; +CLON0.1T42 PO; -DOCU-300 PO; +FAMO20TA13 PO; +FURO-572 PO; -FURO40TA9 PO; -HYDR100T79 PO; -LORA10TA19 PO; -SPIR25TA PO; +SPIR50TA PO
[2019-11-04 22:47] VITALS: BP 131/95
[2019-11-04 23:32] LABS: BASOPHILS % (AUTO) 0.4 % (0.0-2.0); EOSINOPHILS # (AUTO) 0.2 K/uL (0-0.4); HEMATOCRIT 39.8 % (36-48); LYMPHOCYTES # (AUTO) 2.6 K/uL (2.5-16.5); LYMPHOCYTES % (AUTO) 30.5 % (20.5-51.1); MEAN CORPUSCULAR HEMOGLOBIN 29 pg (27-31); MEAN CORPUSCULAR HGB CONC 33 g/dL (33-37); MEAN CORPUSCULAR VOLUME 89.7 fL (80-94); MONOCYTES # (AUTO) 0.9 K/uL (0.8-1.0); MONOCYTES % (AUTO) 10.2 % (1.7-9.3); NEUTROPHILS # (AUTO) 4.9 K/uL (1.8-7.7); NEUTROPHILS % (AUTO) 56.9 % (42.2-75.2); PLATELET COUNT (AUTO) 240 K/uL (140-450); RED BLOOD CELL COUNT(AUTO) 4.44 MIL/uL (4.20-5.40); RED CELL DISTRIBUTION WIDTH 13.5 % (11.6-13.7); WHITE BLOOD COUNT (AUTO) 8.6 K/uL (4.8-10.8)
[2019-11-04 23:49] LABS: ALBUMIN 3.2 g/dL (3.4-5.0); ANION GAP 12.1 (8-16); CARBON DIOXIDE 31.3 mmol/L (21-32); CREATININE 1.2 mg/dL (0.6-1.3); POTASSIUM 3.4 mmol/L (3.5-5.1); TOTAL BILIRUBIN 0.2 mg/dL (0.0-1.0)
[2019-11-05 00:50] VITALS: BP 130/87
== END 2019-11-05 00:50 | disposition home or self-care (01) ==
LOC: MED 22:42
DX: R00.2 Palpitations (principal); I11.0 Hypertensive heart disease with heart failure; I50.9 Heart failure, unspecified; E78.5 Hyperlipidemia, unspecified
CPT/HCPCS: 36415; 71045; 80053; 83690; 83880; 84484; 85025; 93005; 99285

== ENCOUNTER 2021-07-22 10:21 | Emergency (ER) | payer MEDICAID ==
[~2021-07-22] VITALS: Ht 157.5 cm; Wt 108.4 kg
[~2021-07-22 10:21] MED LIST changes: -LISI-420 PO; +LISI20TA29 PO
[2021-07-22 10:22] VITALS: BP 148/75
--- NOTE | 2021-07-22 10:30 | NUR ---
PATIENT AMBULATED TO BED 8 WITH STEADY EVEN GAIT
--- NOTE | 2021-07-22 10:32 | NUR ---
40 Y/O F BIB SELF C/O OF LOW BLOOD PRESSURE THIS MORNING. PT STATES "CALLED A NURSE HOTLINE AND TOLD HER TO VISIT THE ER FOR HER LOW BP. ALSO COMPLAINS OF HEART FLUTTER AND NAUSEA. DENIES CHEST PAIN, FEVER, VOMIT. PT IS AMBULATORY. BED LOCKED IN POSITION, SIDE RAILS X1. PMH: HTN CHF MEDS: LOSARTAN, SPIRONOLACTONE NKA
--- NOTE | 2021-07-22 11:05 | NUR ---
OBTAINED UA SAMPLE.
--- NOTE | 2021-07-22 11:11 | NUR ---
DR. PUENTE AT PATIENT'S BEDSIDE
[2021-07-22 11:34] VITALS: BP 135/82
--- NOTE | 2021-07-22 11:35 | NUR ---
Patient discharged with v/s stable. Written and verbal after care instructions given and explained. Patient verbalized understanding. Ambulatory with steady gait. All questions addressed prior to discharge. Advised to follow up with PMD.
== END 2021-07-22 11:35 | disposition home or self-care (01) ==
LOC: MED 10:21
DX: I95.9 Hypotension, unspecified (principal); I10 Essential (primary) hypertension; Z79.899 Other long term (current) drug therapy; Z90.49 Acquired absence of other specified parts of digestive tract
CPT/HCPCS: 81002; 81025; 99282

== ENCOUNTER 2023-06-14 15:21 | Emergency (ER) | payer MEDICAID, OTHER ==
[~2023-06-14] VITALS: Ht 160 cm; Wt 107.7 kg
[2023-06-14 15:29] VITALS: BP 166/101; PULSE 97; RESP 22; TEMP 99.1; O2SAT 99
[2023-06-14 16:13] LABS: BASOPHILS % (AUTO) 0.3 % (0.0-2.0); EOSINOPHILS % (AUTO) 0.2 % (0.0-4.0); HEMATOCRIT 40.8 % (36-48); HEMOGLOBIN 13.7 g/dL (12.0-16.0); LYMPHOCYTES # (AUTO) 1.4 K/uL (2.5-16.5); LYMPHOCYTES % (AUTO) 10.3 % (20.5-51.1); MEAN CORPUSCULAR HEMOGLOBIN 29 pg (27-31); MEAN CORPUSCULAR HGB CONC 34 g/dL (33-37); MEAN CORPUSCULAR VOLUME 85.4 fL (80-94); MONOCYTES % (AUTO) 7.4 % (1.7-9.3); NEUTROPHILS # (AUTO) 11.4 K/uL (1.8-7.7); NEUTROPHILS % (AUTO) 81.8 % (42.2-75.2); PLATELET COUNT (AUTO) 199 K/uL (140-450); RED BLOOD CELL COUNT(AUTO) 4.78 MIL/uL (4.20-5.40); RED CELL DISTRIBUTION WIDTH 13.4 % (11.6-13.7); WHITE BLOOD COUNT (AUTO) 13.9 K/uL (4.8-10.8)
[2023-06-14 16:28] LABS: ANION GAP 8.7 (8-16); CALCIUM 8.3 mg/dL (8.5-10.1); CARBON DIOXIDE 29.8 mmol/L (21-32); POTASSIUM 3.5 mmol/L (3.5-5.1)
[2023-06-14] MEDS: ONDANSETRON 4 MG/2 ML VIAL IVP ONE (16:46)
[2023-06-14] MEDS: MORPHINE SULFATE 4 MG/ML SYR IVP ONE (16:47)
[2023-06-14] MEDS ORDERED: ACET-10509 PO (18:04)
[2023-06-14 19:24] LABS: APPEARANCE,URINE TURBID (CLEAR); BILIRUBIN,URINE NEGATIVE (NEGATIVE); BLOOD, URINE NEGATIVE (NEGATIVE); COLOR,URINE ORANGE (YELLOW); LEUKOCYTE ESTERASE ,URINE NEGATIVE (NEGATIVE); NITRITE, URINE NEGATIVE (NEGATIVE); PH,URINE 6.5 (5.0-9.0); PROTEIN,URINE 2+ (NEGATIVE); UGLUCOSE NEGATIVE (NEGATIVE)
[2023-07-07] MEDS ORDERED: IBUP-2213 PO (10:51)
== END 2023-06-14 19:29 | disposition home or self-care (01) ==
LOC: MED 15:21
DX: R10.2 Pelvic and perineal pain (principal); I11.0 Hypertensive heart disease with heart failure; I50.9 Heart failure, unspecified; N83.202 Unspecified ovarian cyst, left side; Z79.899 Other long term (current) drug therapy
CPT/HCPCS: 36415; 76830; 80048; 81003; 81025; 84702; 85025; 87210; 96374; 96375; 99285; J2270; J2405; Q0092

== ENCOUNTER 2023-06-15 10:50 | Inpatient (IN) | payer OTHER ==
[~2023-06-15] VITALS: Ht 160 cm; Wt 107.5 kg
[~2023-06-15 10:50] MED LIST changes: +ACET-10509 PO
[2023-06-15 10:52] VITALS: BP 148/103; PULSE 94; RESP 18; TEMP 98.2; O2SAT 99
[2023-06-15 11:01] VITALS: O2SAT 99
[2023-06-15] MEDS: ONDANSETRON 4 MG/2 ML VIAL IVP ONE (11:24)
[2023-06-15 11:33] LABS: BASOPHILS # (AUTO) 0.1 K/uL (0.00-0.22); BASOPHILS % (AUTO) 0.3 % (0.0-2.0); HEMATOCRIT 41.1 % (36-48); HEMOGLOBIN 13.9 g/dL (12.0-16.0); LYMPHOCYTES # (AUTO) 1.1 K/uL (2.5-16.5); LYMPHOCYTES % (AUTO) 5.5 % (20.5-51.1); MEAN CORPUSCULAR HEMOGLOBIN 29 pg (27-31); MEAN CORPUSCULAR HGB CONC 34 g/dL (33-37); MEAN CORPUSCULAR VOLUME 85.4 fL (80-94); MONOCYTES # (AUTO) 0.8 K/uL (0.8-1.0); MONOCYTES % (AUTO) 4.1 % (1.7-9.3); NEUTROPHILS # (AUTO) 18.1 K/uL (1.8-7.7); NEUTROPHILS % (AUTO) 90.1 % (42.2-75.2); PLATELET COUNT (AUTO) 205 K/uL (140-450); RED BLOOD CELL COUNT(AUTO) 4.81 MIL/uL (4.20-5.40); RED CELL DISTRIBUTION WIDTH 13.6 % (11.6-13.7); WHITE BLOOD COUNT (AUTO) 20.1 K/uL (4.8-10.8)
[2023-06-15 11:57] LABS: ANION GAP 10.3 (8-16); CALCIUM 8.6 mg/dL (8.5-10.1); CARBON DIOXIDE 28.4 mmol/L (21-32); CREATININE 0.9 mg/dL (0.6-1.3); POTASSIUM 3.7 mmol/L (3.5-5.1)
[2023-06-15 12:01] LABS: ALBUMIN 2.9 g/dL (3.4-5.0); BILIRUBIN,DIRECT 0.4 mg/dL (0.0-0.3); TOTAL PROTEIN, SERUM 8.7 g/dL (6.4-8.2)
[2023-06-15] MEDS: MORPHINE SULFATE 4 MG/ML SYR IVP ONE (12:07)
[2023-06-15] MEDS: KETOROLAC 30 MG/ML VIAL IVP ONE (12:14)
[2023-06-15 12:48] LABS: APPEARANCE,URINE CLEAR (CLEAR); BILIRUBIN,URINE 1+ (NEGATIVE); BLOOD, URINE NEGATIVE (NEGATIVE); COLOR,URINE YELLOW (YELLOW); LEUKOCYTE ESTERASE ,URINE NEGATIVE (NEGATIVE); NITRITE, URINE POSITIVE (NEGATIVE); PROTEIN,URINE 3+ (NEGATIVE); UGLUCOSE TRACE (NEGATIVE)
[2023-06-15 12:52] LABS: ICTOTEST POSITIVE (NEGATIVE)
[2023-06-15 12:53] LABS: BACTERIA,URINE 1+ /HPF (None Seen); MUCUS,URINE 1+ /LPF (None Seen); RBC,URINE 0 /HPF (0-5); SQUAMOUS EPITHELIAL CELL,UR 0-3 (FEW) /LPF (0-3 (FEW)); WBC,URINE 0-5 /HPF (0-5)
[2023-06-15 13:01] VITALS: O2SAT 98
[2023-06-15] MEDS: ENALAPRILAT 2.5 MG/2 ML VIAL IVP ONE (13:29)
[2023-06-15] MEDS: NACL 0.9% 1,000 ML IV SCH (15:35)
[2023-06-15 16:54] VITALS: PULSE 79; RESP 17; O2SAT 98
[2023-06-15 17:02] VITALS: BP 162/96; PULSE 79; RESP 20; TEMP 97; O2SAT 99
[2023-06-15] MEDS: hydrALAZINE 20 MG/ML VIAL IVP PRN (17:19)
[2023-06-15] MEDS: MORPHINE SULFATE 2 MG/ML SYR IVP PRN (18:04)
[2023-06-15 20:00] VITALS: BP 166/96; PULSE 123; PULSE 125; PULSE 79; RESP 20; RESP 21; TEMP 100.3; O2SAT 95; O2SAT 99
[2023-06-15] MEDS: HYDROcodone/APAP 5/325 MG 1 TAB TAB PO PRN (20:50)
[2023-06-15] MEDS: ACETAMINOPHEN 325 MG TAB PO PRN (20:51)
[2023-06-15] MEDS: carvediloL 12.5 MG TAB PO SCH (20:51)
[2023-06-16] VITALS (9 sets, daily range): BP systolic 112–169; BP diastolic 69–95; PULSE 75–125; RESP 18–22; TEMP 98–100.9; O2SAT 94–100
[2023-06-16] MEDS: amLODIPine 5 MG TAB PO SCH (08:16)
[2023-06-16] MEDS ORDERED: HYDROmorphone 1 MG/ML AMP IVP PRN (17:15)
[2023-06-16] MEDS: HYDROmorphone 1 MG/ML AMP IVP PRN (17:37)
[2023-06-17] VITALS (7 sets, daily range): BP systolic 97–140; BP diastolic 67–89; PULSE 81–99; RESP 18–20; TEMP 97.4–98.5; O2SAT 90–94
[2023-06-17] MEDS: ALBUTEROL 0.083% 2.5 MG/3 ML NEBU INH SCH (01:00)
[2023-06-17 07:29] LABS: EOSINOPHILS % (AUTO) 0.1 % (0.0-4.0); HEMATOCRIT 37.9 % (36-48); HEMOGLOBIN 12.6 g/dL (12.0-16.0); LYMPHOCYTES # (AUTO) 0.9 K/uL (2.5-16.5); MEAN CORPUSCULAR HEMOGLOBIN 29 pg (27-31); MEAN CORPUSCULAR HGB CONC 33 g/dL (33-37); MEAN CORPUSCULAR VOLUME 86.1 fL (80-94); MONOCYTES % (AUTO) 5.6 % (1.7-9.3); NEUTROPHILS # (AUTO) 15.3 K/uL (1.8-7.7); PLATELET COUNT (AUTO) 200 K/uL (140-450); RED BLOOD CELL COUNT(AUTO) 4.41 MIL/uL (4.20-5.40); RED CELL DISTRIBUTION WIDTH 13.9 % (11.6-13.7); WHITE BLOOD COUNT (AUTO) 17.1 K/uL (4.8-10.8)
[2023-06-17 07:41] LABS: ANION GAP 14.8 (8-16); CALCIUM 8.3 mg/dL (8.5-10.1); CREATININE 1.6 mg/dL (0.6-1.3); POTASSIUM 3.8 mmol/L (3.5-5.1)
[2023-06-17 07:46] LABS: LYMPHOCYTES % (AUTO) 5.3 % (20.5-51.1)
[2023-06-17] MEDS: PANTOPRAZOLE 40 MG INJ VIAL IVP SCH (18:27)
[2023-06-17] MEDS: DOCUSATE SODIUM 100 MG GELCAP PO SCH (21:00)
[2023-06-18] VITALS (21 sets, daily range): BP systolic 121–156; BP diastolic 52–102; PULSE 81–95; RESP 14–26; TEMP 97–98.7; O2SAT 93–100
[2023-06-18 00:18] LABS: INR 1.06 (0.8-1.2); PROTHROMBIN TIME 11.1 secs (10.8-13.4)
[2023-06-18] MEDS ORDERED: SEVOFLURANE 250 ML BTL INH ONE (02:00)
[2023-06-18] MEDS ORDERED: HYDROmorphone 1 MG/ML AMP IVP PRN (02:30)
[2023-06-18] MEDS ORDERED: ONDANSETRON 4 MG/2 ML VIAL IVP PRN (02:30)
[2023-06-18] MEDS: PROPOFOL 1000 MG/100 ML PREMIX 100 ML IV ONE (03:59)
[2023-06-18] MEDS: NACL 0.9% 1,000 ML IV ONE ×2 (04:00→04:51)
[2023-06-18] MEDS: NOREPINEPHRINE 4 MG in DEXTROSE 5% 250 ML IV PRN (04:30)
[2023-06-18] MEDS: NOREPINEPHRINE 4 MG/4 ML VIAL IV ONE (04:51)
[2023-06-18] MEDS: PROPOFOL 200 MG/20 ML VIAL IV ONE (04:51)
[2023-06-18] MEDS: ROCURONIUM 50 MG/5 ML VIAL IV ONE ×2 (04:52→04:57)
[2023-06-18] MEDS: MIDAZOLAM 2 MG/2 ML VIAL ONE (04:52)
[2023-06-18] MEDS: SUCCINYLCHOLINE CHLORIDE 200 MG/10 ML VIAL IVP ONE (04:52)
[2023-06-18] MEDS: fentaNYL citrate 0.05 MG/ML VIAL ONE (04:53)
[2023-06-18] MEDS: ceFAZolin 1,000 MG VIAL ONE ×2 (04:55)
[2023-06-18] MEDS: DEXAMETHASONE 4 MG/ML VIAL ONE ×2 (04:58)
[2023-06-18] MEDS: ONDANSETRON 4 MG/2 ML VIAL ONE (04:58)
[2023-06-18] MEDS ORDERED: PIPERACILLIN/TAZOBACTAM 3.375 GM VIAL IV ONE (05:01)
[2023-06-18] MEDS: PROPOFOL 1000 MG/100 ML PREMIX 100 ML IV PRN (05:06)
[2023-06-18] MEDS: PIPERACILLIN/TAZOBACTAM 3.375 GM in DEXTROSE 5% 50 ML IV SCH (05:07)
[2023-06-18 05:31] LABS: BLOOD GAS HCO3 18.3 mmol/L (22-26); BLOOD GAS O2 SAT% 99.6 % (92.0-98.5); BLOOD GAS PCO2 36.1 mmHg (35-45); BLOOD GAS PH 7.322 (7.35-7.45); BLOOD GAS PO2 260.4 mmHg (75-100)
[2023-06-18] MEDS: NACL 0.9% 1,000 ML IV SCH (06:23)
[2023-06-18] MEDS: PANTOPRAZOLE 40 MG INJ VIAL IVP SCH (08:55)
[2023-06-18 09:01] LABS: HEMATOCRIT 40.4 % (36-48); HEMOGLOBIN 13.3 g/dL (12.0-16.0); MEAN CORPUSCULAR HEMOGLOBIN 28 pg (27-31); MEAN CORPUSCULAR HGB CONC 33 g/dL (33-37); MEAN CORPUSCULAR VOLUME 86.1 fL (80-94); PLATELET COUNT (AUTO) 246 K/uL (140-450); RED CELL DISTRIBUTION WIDTH 14.4 % (11.6-13.7); WHITE BLOOD COUNT (AUTO) 22.7 K/uL (4.8-10.8)
[2023-06-18 09:26] LABS: ANION GAP 13.7 (8-16); CALCIUM 7.3 mg/dL (8.5-10.1); CARBON DIOXIDE 20.3 mmol/L (21-32); CREATININE 1.1 mg/dL (0.6-1.3)
[2023-06-18 09:41] LABS: LYMPHOCYTES % (MANUAL) 4 % (20-46); MONOCYTES % (MANUAL) 4 % (5-12)
[2023-06-18] MEDS: HYDROmorphone 1 MG/ML AMP IVP PRN (10:19)
[2023-06-19] VITALS (25 sets, daily range): BP systolic 99–170; BP diastolic 41–109; PULSE 73–103; RESP 12–27; TEMP 97.2–98.4; O2SAT 95–100
[2023-06-19 06:02] LABS: HEMATOCRIT 40.3 % (36-48); HEMOGLOBIN 13.3 g/dL (12.0-16.0); LYMPHOCYTES % (AUTO) 8.6 % (20.5-51.1); MEAN CORPUSCULAR HEMOGLOBIN 29 pg (27-31); MEAN CORPUSCULAR HGB CONC 33 g/dL (33-37); MEAN CORPUSCULAR VOLUME 87.2 fL (80-94); MONOCYTES # (AUTO) 1.8 K/uL (0.8-1.0); MONOCYTES % (AUTO) 7.8 % (1.7-9.3); NEUTROPHILS # (AUTO) 19.5 K/uL (1.8-7.7); NEUTROPHILS % (AUTO) 83.6 % (42.2-75.2); PLATELET COUNT (AUTO) 293 K/uL (140-450); RED BLOOD CELL COUNT(AUTO) 4.62 MIL/uL (4.20-5.40); RED CELL DISTRIBUTION WIDTH 14.4 % (11.6-13.7); WHITE BLOOD COUNT (AUTO) 23.3 K/uL (4.8-10.8)
[2023-06-19 06:41] LABS: ANION GAP 14.9 (8-16); CALCIUM 8.1 mg/dL (8.5-10.1); CREATININE 0.9 mg/dL (0.6-1.3); POTASSIUM 3.9 mmol/L (3.5-5.1)
[2023-06-19] MEDS ORDERED: AZITHROMYCIN 500 MG INJ VIAL IV ONE (22:09)
[2023-06-19] MEDS: AZITHROMYCIN 500 MG in DEXTROSE 5% 250 ML IV SCH (22:21)
[2023-06-19] MEDS: ONDANSETRON 4 MG/2 ML VIAL IVP PRN (22:43)
[2023-06-20] VITALS (22 sets, daily range): BP systolic 101–171; BP diastolic 65–103; PULSE 69–88; RESP 13–20; TEMP 97.4–98.9; O2SAT 95–100
[2023-06-20 05:51] LABS: BASOPHILS % (AUTO) 0.1 % (0.0-2.0); EOSINOPHILS % (AUTO) 0.1 % (0.0-4.0); HEMATOCRIT 35.5 % (36-48); HEMOGLOBIN 11.4 g/dL (12.0-16.0); LYMPHOCYTES # (AUTO) 2.3 K/uL (2.5-16.5); LYMPHOCYTES % (AUTO) 12.1 % (20.5-51.1); MEAN CORPUSCULAR HEMOGLOBIN 28 pg (27-31); MEAN CORPUSCULAR HGB CONC 32 g/dL (33-37); MEAN CORPUSCULAR VOLUME 87.2 fL (80-94); MONOCYTES # (AUTO) 1.8 K/uL (0.8-1.0); MONOCYTES % (AUTO) 9.1 % (1.7-9.3); NEUTROPHILS # (AUTO) 15.2 K/uL (1.8-7.7); NEUTROPHILS % (AUTO) 78.6 % (42.2-75.2); PLATELET COUNT (AUTO) 305 K/uL (140-450); RED BLOOD CELL COUNT(AUTO) 4.07 MIL/uL (4.20-5.40); RED CELL DISTRIBUTION WIDTH 14.8 % (11.6-13.7); WHITE BLOOD COUNT (AUTO) 19.4 K/uL (4.8-10.8)
[2023-06-20 06:18] LABS: ALBUMIN 1.5 g/dL (3.4-5.0); CALCIUM 7.7 mg/dL (8.5-10.1); CARBON DIOXIDE 26.7 mmol/L (21-32); CREATININE 0.7 mg/dL (0.6-1.3); POTASSIUM 3.7 mmol/L (3.5-5.1); TOTAL BILIRUBIN 0.5 mg/dL (0.0-1.0); TOTAL PROTEIN, SERUM 6.5 g/dL (6.4-8.2)
[2023-06-20] MEDS ORDERED: DOCUSATE SODIUM 100 MG GELCAP PO PRN (10:45)
[2023-06-21] VITALS (8 sets, daily range): BP systolic 158–167; BP diastolic 89–93; PULSE 65–100; RESP 18–21; TEMP 97–97.6; O2SAT 94–97
[2023-06-21] MEDS: DOCUSATE SODIUM 100 MG GELCAP PO SCH (08:50)
[2023-06-21] MEDS: METOCLOPRAMIDE 10 MG/2 ML INJ VIAL IVP SCH (10:50)
[2023-06-22] VITALS (9 sets, daily range): BP systolic 137–165; BP diastolic 83–97; PULSE 65–86; RESP 16–22; TEMP 97–97.9; O2SAT 95–99
[2023-06-23] VITALS (13 sets, daily range): BP systolic 140–161; BP diastolic 72–98; PULSE 65–97; RESP 16–24; TEMP 98–98.9; O2SAT 95–98
[2023-06-23 06:58] LABS: BASOPHILS % (AUTO) 0.1 % (0.0-2.0); EOSINOPHILS # (AUTO) 0.2 K/uL (0-0.4); EOSINOPHILS % (AUTO) 0.7 % (0.0-4.0); HEMATOCRIT 32.8 % (36-48); HEMOGLOBIN 10.7 g/dL (12.0-16.0); LYMPHOCYTES % (AUTO) 11.2 % (20.5-51.1); MEAN CORPUSCULAR HEMOGLOBIN 28 pg (27-31); MEAN CORPUSCULAR HGB CONC 33 g/dL (33-37); MEAN CORPUSCULAR VOLUME 85.8 fL (80-94); MONOCYTES # (AUTO) 1.5 K/uL (0.8-1.0); MONOCYTES % (AUTO) 5.6 % (1.7-9.3); NEUTROPHILS # (AUTO) 21.8 K/uL (1.8-7.7); NEUTROPHILS % (AUTO) 82.4 % (42.2-75.2); PLATELET COUNT (AUTO) 345 K/uL (140-450); RED BLOOD CELL COUNT(AUTO) 3.82 MIL/uL (4.20-5.40); RED CELL DISTRIBUTION WIDTH 14.6 % (11.6-13.7)
[2023-06-23 07:06] LABS: WHITE BLOOD COUNT (AUTO) 26.5 K/uL (4.8-10.8)
[2023-06-23 08:26] LABS: ANION GAP 10.1 (8-16); CREATININE 0.6 mg/dL (0.6-1.3); MAGNESIUM 1.4 mg/dL (1.8-2.4); POTASSIUM 3.1 mmol/L (3.5-5.1); TOTAL BILIRUBIN 0.6 mg/dL (0.0-1.0)
[2023-06-23 09:00] LABS: ALBUMIN 1.6 g/dL (3.4-5.0)
[2023-06-23] MEDS: POTASSIUM CHLORIDE 10 MEQ TABER PO SCH (11:24)
[2023-06-23 13:06] LABS: APPEARANCE,URINE CLEAR (CLEAR); BILIRUBIN,URINE NEGATIVE (NEGATIVE); BLOOD, URINE TRACE-I (NEGATIVE); COLOR,URINE YELLOW (YELLOW); LEUKOCYTE ESTERASE ,URINE NEGATIVE (NEGATIVE); NITRITE, URINE NEGATIVE (NEGATIVE); PH,URINE 6.5 (5.0-9.0); PROTEIN,URINE NEGATIVE (NEGATIVE); UGLUCOSE NEGATIVE (NEGATIVE); UROBILINOGEN,URINE 0.2 EU/dL (0.2 - 1)
[2023-06-23] MEDS ORDERED: ALBUTEROL 0.083% 2.5 MG/3 ML NEBU INH PRN (15:10)
[2023-06-24] VITALS (11 sets, daily range): BP systolic 118–157; BP diastolic 66–93; PULSE 76–90; RESP 16–18; TEMP 97.1–98.8; O2SAT 97–100
[2023-06-24 07:32] LABS: BASOPHILS # (AUTO) 0.1 K/uL (0.00-0.22); BASOPHILS % (AUTO) 0.4 % (0.0-2.0); EOSINOPHILS # (AUTO) 0.3 K/uL (0-0.4); HEMATOCRIT 30.6 % (36-48); HEMOGLOBIN 10.1 g/dL (12.0-16.0); LYMPHOCYTES # (AUTO) 3.2 K/uL (2.5-16.5); LYMPHOCYTES % (AUTO) 11.3 % (20.5-51.1); MEAN CORPUSCULAR HEMOGLOBIN 29 pg (27-31); MEAN CORPUSCULAR HGB CONC 33 g/dL (33-37); MEAN CORPUSCULAR VOLUME 86.3 fL (80-94); MONOCYTES # (AUTO) 1.2 K/uL (0.8-1.0); MONOCYTES % (AUTO) 4.3 % (1.7-9.3); NEUTROPHILS # (AUTO) 23.3 K/uL (1.8-7.7); PLATELET COUNT (AUTO) 319 K/uL (140-450); RED BLOOD CELL COUNT(AUTO) 3.55 MIL/uL (4.20-5.40); RED CELL DISTRIBUTION WIDTH 14.2 % (11.6-13.7)
[2023-06-24 07:39] LABS: WHITE BLOOD COUNT (AUTO) 28.1 K/uL (4.8-10.8)
[2023-06-24 07:48] LABS: ALBUMIN 1.7 g/dL (3.4-5.0); ANION GAP 7.9 (8-16); CALCIUM 7.9 mg/dL (8.5-10.1); CREATININE 0.6 mg/dL (0.6-1.3); MAGNESIUM 1.2 mg/dL (1.8-2.4); POTASSIUM 3.9 mmol/L (3.5-5.1); TOTAL BILIRUBIN 0.5 mg/dL (0.0-1.0); TOTAL PROTEIN, SERUM 6.1 g/dL (6.4-8.2)
[2023-06-24] MEDS: DEXT 5% / NACL 0.45% 1,000 ML IV SCH (13:22)
[2023-06-24] MEDS ORDERED: MAG SULF 2000 MG/WATER PREMIX 50 ML IV PRN (17:05)
[2023-06-24] MEDS: MAG SULF 2000 MG/WATER PREMIX 50 ML IV ONE (17:19)
[2023-06-24] MEDS: MAG SULF 2000 MG/WATER PREMIX 50 ML IV PRN (17:21)
[2023-06-25] VITALS (12 sets, daily range): BP systolic 126–146; BP diastolic 72–96; PULSE 79–93; RESP 18–20; TEMP 97–98.3; O2SAT 94–99
[2023-06-25 06:56] LABS: BASOPHILS % (AUTO) 0.1 % (0.0-2.0); EOSINOPHILS # (AUTO) 0.4 K/uL (0-0.4); HEMATOCRIT 29.4 % (36-48); HEMOGLOBIN 9.8 g/dL (12.0-16.0); LYMPHOCYTES # (AUTO) 2.9 K/uL (2.5-16.5); LYMPHOCYTES % (AUTO) 14.8 % (20.5-51.1); MEAN CORPUSCULAR HEMOGLOBIN 29 pg (27-31); MEAN CORPUSCULAR HGB CONC 33 g/dL (33-37); MEAN CORPUSCULAR VOLUME 85.7 fL (80-94); MONOCYTES # (AUTO) 1.3 K/uL (0.8-1.0); MONOCYTES % (AUTO) 6.6 % (1.7-9.3); NEUTROPHILS # (AUTO) 14.8 K/uL (1.8-7.7); NEUTROPHILS % (AUTO) 76.5 % (42.2-75.2); PLATELET COUNT (AUTO) 323 K/uL (140-450); RED BLOOD CELL COUNT(AUTO) 3.42 MIL/uL (4.20-5.40); RED CELL DISTRIBUTION WIDTH 14.2 % (11.6-13.7); WHITE BLOOD COUNT (AUTO) 19.4 K/uL (4.8-10.8)
[2023-06-25 07:50] LABS: ALBUMIN 1.8 g/dL (3.4-5.0); ANION GAP 6.1 (8-16); CALCIUM 7.8 mg/dL (8.5-10.1); CARBON DIOXIDE 32.3 mmol/L (21-32); CREATININE 0.6 mg/dL (0.6-1.3); MAGNESIUM 2.1 mg/dL (1.8-2.4); POTASSIUM 3.4 mmol/L (3.5-5.1); TOTAL BILIRUBIN 0.3 mg/dL (0.0-1.0); TOTAL PROTEIN, SERUM 6.3 g/dL (6.4-8.2)
[2023-06-25 08:06] LABS: PARTIAL THROMBOPLASTIN TIME 26.8 secs (22-35.6); PROTHROMBIN TIME 10.5 secs (10.8-13.4)
[2023-06-25] MEDS: MIDAZOLAM 2 MG/2 ML VIAL ONE (09:26)
[2023-06-25] MEDS: fentaNYL citrate 0.05 MG/ML VIAL ONE (09:26)
[2023-06-25] MEDS: LIDOCAINE 1% 500 MG/50 ML VIAL ONE (09:27)
[2023-06-25] MEDS: KCL 20 MEQ IN 100 mL PREMIX 200 ML IV PRN (12:58)
[2023-06-26] VITALS: BP 122/69; PULSE 90; PULSE 97; RESP 18; TEMP 98.7; O2SAT 97
[2023-06-26 04:00] VITALS: BP 114/77; PULSE 84; RESP 18; TEMP 98; O2SAT 97
[2023-06-26 06:54] LABS: BASOPHILS # (AUTO) 0.1 K/uL (0.00-0.22); BASOPHILS % (AUTO) 0.4 % (0.0-2.0); EOSINOPHILS # (AUTO) 0.3 K/uL (0-0.4); EOSINOPHILS % (AUTO) 1.9 % (0.0-4.0); HEMATOCRIT 28.9 % (36-48); HEMOGLOBIN 9.5 g/dL (12.0-16.0); MEAN CORPUSCULAR HEMOGLOBIN 28 pg (27-31); MEAN CORPUSCULAR HGB CONC 33 g/dL (33-37); MEAN CORPUSCULAR VOLUME 85.9 fL (80-94); MONOCYTES # (AUTO) 1.4 K/uL (0.8-1.0); MONOCYTES % (AUTO) 9.1 % (1.7-9.3); NEUTROPHILS # (AUTO) 11.7 K/uL (1.8-7.7); NEUTROPHILS % (AUTO) 75.6 % (42.2-75.2); PLATELET COUNT (AUTO) 294 K/uL (140-450); RED BLOOD CELL COUNT(AUTO) 3.37 MIL/uL (4.20-5.40); RED CELL DISTRIBUTION WIDTH 14.3 % (11.6-13.7); WHITE BLOOD COUNT (AUTO) 15.5 K/uL (4.8-10.8)
[2023-06-26 07:24] LABS: ALBUMIN 1.9 g/dL (3.4-5.0); ANION GAP 7.6 (8-16); CALCIUM 7.8 mg/dL (8.5-10.1); CARBON DIOXIDE 30.8 mmol/L (21-32); CREATININE 0.6 mg/dL (0.6-1.3); MAGNESIUM 1.9 mg/dL (1.8-2.4); POTASSIUM 3.4 mmol/L (3.5-5.1); TOTAL BILIRUBIN 0.3 mg/dL (0.0-1.0); TOTAL PROTEIN, SERUM 5.8 g/dL (6.4-8.2)
[2023-06-26 08:00] VITALS: BP 155/95; PULSE 69; PULSE 76; PULSE 80; RESP 18; TEMP 97.1; O2SAT 96
[2023-06-26] MEDS: SIMETHICONE 80 MG TAB.CHEW PO SCH (11:51)
[2023-06-26 12:00] VITALS: BP 134/92; PULSE 77; PULSE 83; RESP 18; TEMP 98; O2SAT 98
[2023-06-26 16:00] VITALS: BP 137/75; PULSE 84; PULSE 94; RESP 18; TEMP 98; O2SAT 98
[2023-06-26 20:00] VITALS: BP 132/81; PULSE 91; PULSE 93; RESP 18; TEMP 98.3; O2SAT 99
[2023-06-27] VITALS (10 sets, daily range): BP systolic 105–148; BP diastolic 59–87; PULSE 74–116; RESP 18; TEMP 97.6–99.2; O2SAT 97–99
[2023-06-27 06:52] LABS: BASOPHILS % (AUTO) 0.1 % (0.0-2.0); EOSINOPHILS # (AUTO) 0.3 K/uL (0-0.4); EOSINOPHILS % (AUTO) 2.2 % (0.0-4.0); HEMOGLOBIN 9.9 g/dL (12.0-16.0); LYMPHOCYTES # (AUTO) 2.2 K/uL (2.5-16.5); LYMPHOCYTES % (AUTO) 17.1 % (20.5-51.1); MEAN CORPUSCULAR HEMOGLOBIN 29 pg (27-31); MEAN CORPUSCULAR HGB CONC 33 g/dL (33-37); MEAN CORPUSCULAR VOLUME 86.8 fL (80-94); MONOCYTES # (AUTO) 1.1 K/uL (0.8-1.0); MONOCYTES % (AUTO) 8.9 % (1.7-9.3); NEUTROPHILS # (AUTO) 9.2 K/uL (1.8-7.7); NEUTROPHILS % (AUTO) 71.7 % (42.2-75.2); PLATELET COUNT (AUTO) 324 K/uL (140-450); RED BLOOD CELL COUNT(AUTO) 3.45 MIL/uL (4.20-5.40); RED CELL DISTRIBUTION WIDTH 14.1 % (11.6-13.7); WHITE BLOOD COUNT (AUTO) 12.8 K/uL (4.8-10.8)
[2023-06-27 08:07] LABS: ALBUMIN 1.9 g/dL (3.4-5.0); ANION GAP 7.7 (8-16); CARBON DIOXIDE 30.9 mmol/L (21-32); CREATININE 0.6 mg/dL (0.6-1.3); POTASSIUM 3.6 mmol/L (3.5-5.1); TOTAL BILIRUBIN 0.2 mg/dL (0.0-1.0); TOTAL PROTEIN, SERUM 6.1 g/dL (6.4-8.2)
[2023-06-28] VITALS (7 sets, daily range): BP systolic 127–155; BP diastolic 66–88; PULSE 72–93; RESP 18–19; TEMP 97.4–208.2; O2SAT 92–99
[2023-06-28 06:55] LABS: BASOPHILS % (AUTO) 0.3 % (0.0-2.0); EOSINOPHILS # (AUTO) 0.2 K/uL (0-0.4); EOSINOPHILS % (AUTO) 1.8 % (0.0-4.0); HEMATOCRIT 31.1 % (36-48); HEMOGLOBIN 10.2 g/dL (12.0-16.0); LYMPHOCYTES # (AUTO) 2.2 K/uL (2.5-16.5); LYMPHOCYTES % (AUTO) 16.5 % (20.5-51.1); MEAN CORPUSCULAR HEMOGLOBIN 28 pg (27-31); MEAN CORPUSCULAR HGB CONC 33 g/dL (33-37); MEAN CORPUSCULAR VOLUME 86.1 fL (80-94); MONOCYTES # (AUTO) 1.2 K/uL (0.8-1.0); MONOCYTES % (AUTO) 9.2 % (1.7-9.3); NEUTROPHILS # (AUTO) 9.7 K/uL (1.8-7.7); NEUTROPHILS % (AUTO) 72.2 % (42.2-75.2); PLATELET COUNT (AUTO) 365 K/uL (140-450); RED BLOOD CELL COUNT(AUTO) 3.61 MIL/uL (4.20-5.40); RED CELL DISTRIBUTION WIDTH 14.6 % (11.6-13.7); WHITE BLOOD COUNT (AUTO) 13.4 K/uL (4.8-10.8)
[2023-06-28 07:06] LABS: ANION GAP 10.9 (8-16); CALCIUM 8.4 mg/dL (8.5-10.1); CREATININE 0.6 mg/dL (0.6-1.3); MAGNESIUM 1.9 mg/dL (1.8-2.4); POTASSIUM 3.9 mmol/L (3.5-5.1); TOTAL BILIRUBIN 0.2 mg/dL (0.0-1.0); TOTAL PROTEIN, SERUM 6.6 g/dL (6.4-8.2)
[2023-06-29 04:00] VITALS: BP 132/76; PULSE 85; RESP 19; TEMP 98.1; O2SAT 94
[2023-06-29] MEDS: PIPERACILLIN/TAZOBACTAM 3.375 GM in DEXTROSE 5% 50 ML IV SCH (05:26)
[2023-06-29 07:13] LABS: BASOPHILS % (AUTO) 0.3 % (0.0-2.0); EOSINOPHILS # (AUTO) 0.2 K/uL (0-0.4); EOSINOPHILS % (AUTO) 1.6 % (0.0-4.0); HEMATOCRIT 30.5 % (36-48); HEMOGLOBIN 10.1 g/dL (12.0-16.0); LYMPHOCYTES # (AUTO) 2.4 K/uL (2.5-16.5); LYMPHOCYTES % (AUTO) 17.2 % (20.5-51.1); MEAN CORPUSCULAR HEMOGLOBIN 29 pg (27-31); MEAN CORPUSCULAR HGB CONC 33 g/dL (33-37); MEAN CORPUSCULAR VOLUME 86.9 fL (80-94); MONOCYTES # (AUTO) 1.2 K/uL (0.8-1.0); MONOCYTES % (AUTO) 8.5 % (1.7-9.3); NEUTROPHILS % (AUTO) 72.4 % (42.2-75.2); PLATELET COUNT (AUTO) 399 K/uL (140-450); RED BLOOD CELL COUNT(AUTO) 3.51 MIL/uL (4.20-5.40); RED CELL DISTRIBUTION WIDTH 14.4 % (11.6-13.7); WHITE BLOOD COUNT (AUTO) 13.8 K/uL (4.8-10.8)
[2023-06-29 07:40] LABS: ALBUMIN 2.3 g/dL (3.4-5.0); ANION GAP 10.7 (8-16); CALCIUM 8.8 mg/dL (8.5-10.1); CREATININE 0.7 mg/dL (0.6-1.3); POTASSIUM 3.7 mmol/L (3.5-5.1); TOTAL BILIRUBIN 0.3 mg/dL (0.0-1.0); TOTAL PROTEIN, SERUM 7.2 g/dL (6.4-8.2)
[2023-06-29 08:00] VITALS: PULSE 84; RESP 18; TEMP 98.8; O2SAT 99
[2023-06-29 16:00] VITALS: BP 144/96; PULSE 89; RESP 18; TEMP 98.3; O2SAT 99
[2023-06-29] MEDS: MORPHINE SULFATE 2 MG/ML SYR IVP SCH (19:31)
[2023-06-29 20:00] VITALS: PULSE 93; RESP 20; TEMP 97.8; O2SAT 99
[2023-06-29] MEDS: MORPHINE SULFATE 2 MG/ML SYR IVP PRN (23:55)
[2023-06-30 04:00] VITALS: BP 122/81; PULSE 94; RESP 18; TEMP 98.2; O2SAT 95
[2023-06-30 06:38] LABS: BASOPHILS # (AUTO) 0.1 K/uL (0.00-0.22); BASOPHILS % (AUTO) 0.4 % (0.0-2.0); EOSINOPHILS # (AUTO) 0.2 K/uL (0-0.4); EOSINOPHILS % (AUTO) 1.2 % (0.0-4.0); HEMATOCRIT 30.6 % (36-48); HEMOGLOBIN 9.9 g/dL (12.0-16.0); LYMPHOCYTES # (AUTO) 2.2 K/uL (2.5-16.5); LYMPHOCYTES % (AUTO) 13.6 % (20.5-51.1); MEAN CORPUSCULAR HEMOGLOBIN 28 pg (27-31); MEAN CORPUSCULAR HGB CONC 33 g/dL (33-37); MEAN CORPUSCULAR VOLUME 86.8 fL (80-94); MONOCYTES # (AUTO) 1.3 K/uL (0.8-1.0); MONOCYTES % (AUTO) 8.1 % (1.7-9.3); NEUTROPHILS # (AUTO) 12.3 K/uL (1.8-7.7); NEUTROPHILS % (AUTO) 76.7 % (42.2-75.2); PLATELET COUNT (AUTO) 397 K/uL (140-450); RED BLOOD CELL COUNT(AUTO) 3.53 MIL/uL (4.20-5.40); RED CELL DISTRIBUTION WIDTH 14.4 % (11.6-13.7)
[2023-06-30 07:11] LABS: ALBUMIN 2.3 g/dL (3.4-5.0); ANION GAP 10.9 (8-16); CALCIUM 8.6 mg/dL (8.5-10.1); CARBON DIOXIDE 29.1 mmol/L (21-32); CREATININE 0.7 mg/dL (0.6-1.3); MAGNESIUM 1.9 mg/dL (1.8-2.4); TOTAL BILIRUBIN 0.2 mg/dL (0.0-1.0)
[2023-06-30 08:00] VITALS: PULSE 91; RESP 18; TEMP 98.2; O2SAT 96
[2023-06-30] MEDS: MEROPENEM 1,000 MG in NACL 0.9% 50 ML IV SCH (12:42)
[2023-06-30 16:00] VITALS: BP 135/78; PULSE 95; RESP 18; TEMP 97.8; O2SAT 95
[2023-06-30 20:00] VITALS: PULSE 101; RESP 18; TEMP 99.2; O2SAT 96
[2023-07-01] VITALS: BP 139/81; PULSE 101; RESP 18; TEMP 99.2; O2SAT 96
[2023-07-01 06:38] LABS: BASOPHILS % (AUTO) 0.4 % (0.0-2.0); EOSINOPHILS # (AUTO) 0.2 K/uL (0-0.4); EOSINOPHILS % (AUTO) 1.3 % (0.0-4.0); HEMATOCRIT 31.6 % (36-48); HEMOGLOBIN 10.3 g/dL (12.0-16.0); LYMPHOCYTES % (AUTO) 16.6 % (20.5-51.1); MEAN CORPUSCULAR HEMOGLOBIN 28 pg (27-31); MEAN CORPUSCULAR HGB CONC 33 g/dL (33-37); MEAN CORPUSCULAR VOLUME 86.8 fL (80-94); MONOCYTES # (AUTO) 1.2 K/uL (0.8-1.0); MONOCYTES % (AUTO) 9.6 % (1.7-9.3); NEUTROPHILS # (AUTO) 8.7 K/uL (1.8-7.7); NEUTROPHILS % (AUTO) 72.1 % (42.2-75.2); PLATELET COUNT (AUTO) 402 K/uL (140-450); RED BLOOD CELL COUNT(AUTO) 3.64 MIL/uL (4.20-5.40); RED CELL DISTRIBUTION WIDTH 14.4 % (11.6-13.7)
[2023-07-01 07:06] LABS: ALBUMIN 2.3 g/dL (3.4-5.0); CALCIUM 8.8 mg/dL (8.5-10.1); CREATININE 0.7 mg/dL (0.6-1.3); TOTAL BILIRUBIN 0.3 mg/dL (0.0-1.0); TOTAL PROTEIN, SERUM 7.2 g/dL (6.4-8.2)
[2023-07-01 08:00] VITALS: BP 129/83; PULSE 90; RESP 20; TEMP 97; TEMP 97.2; O2SAT 96; O2SAT 97
[2023-07-01] MEDS: LEVOFLOXACIN 750 MG/D5W PREMIX 150 ML IV SCH (09:58)
[2023-07-01] MEDS: PIPERACILLIN/TAZOBACTAM 4.5 GM in DEXTROSE 5% 100 ML IV SCH (12:13)
[2023-07-01 16:00] VITALS: BP 115/73; PULSE 80; RESP 18; TEMP 97.6; O2SAT 99
[2023-07-01 20:00] VITALS: BP 125/84; PULSE 87; RESP 16; RESP 18; TEMP 97.9; O2SAT 95; O2SAT 96
[2023-07-02 07:24] LABS: BASOPHILS % (AUTO) 0.3 % (0.0-2.0); EOSINOPHILS # (AUTO) 0.1 K/uL (0-0.4); HEMATOCRIT 30.5 % (36-48); HEMOGLOBIN 10.1 g/dL (12.0-16.0); LYMPHOCYTES # (AUTO) 1.4 K/uL (2.5-16.5); LYMPHOCYTES % (AUTO) 12.5 % (20.5-51.1); MEAN CORPUSCULAR HEMOGLOBIN 29 pg (27-31); MEAN CORPUSCULAR HGB CONC 33 g/dL (33-37); MEAN CORPUSCULAR VOLUME 87.4 fL (80-94); MONOCYTES % (AUTO) 8.8 % (1.7-9.3); NEUTROPHILS # (AUTO) 8.9 K/uL (1.8-7.7); NEUTROPHILS % (AUTO) 77.4 % (42.2-75.2); PLATELET COUNT (AUTO) 393 K/uL (140-450); RED BLOOD CELL COUNT(AUTO) 3.49 MIL/uL (4.20-5.40); RED CELL DISTRIBUTION WIDTH 14.7 % (11.6-13.7); WHITE BLOOD COUNT (AUTO) 11.5 K/uL (4.8-10.8)
[2023-07-02 07:38] LABS: ALBUMIN 2.2 g/dL (3.4-5.0); ANION GAP 10.3 (8-16); CALCIUM 8.6 mg/dL (8.5-10.1); CARBON DIOXIDE 30.7 mmol/L (21-32); CREATININE 0.8 mg/dL (0.6-1.3); MAGNESIUM 1.8 mg/dL (1.8-2.4); TOTAL BILIRUBIN 0.3 mg/dL (0.0-1.0); TOTAL PROTEIN, SERUM 7.2 g/dL (6.4-8.2)
[2023-07-02 08:00] VITALS: BP 122/95; PULSE 87; RESP 18; TEMP 97.3; O2SAT 95
[2023-07-02 16:00] VITALS: BP 132/82; PULSE 87; RESP 18; TEMP 97.9; O2SAT 94
[2023-07-02 20:00] VITALS: PULSE 87; RESP 16; TEMP 97.9; O2SAT 96
[2023-07-03 06:42] LABS: BASOPHILS % (AUTO) 0.2 % (0.0-2.0); EOSINOPHILS # (AUTO) 0.2 K/uL (0-0.4); EOSINOPHILS % (AUTO) 1.8 % (0.0-4.0); HEMATOCRIT 31.9 % (36-48); HEMOGLOBIN 10.6 g/dL (12.0-16.0); LYMPHOCYTES # (AUTO) 1.9 K/uL (2.5-16.5); LYMPHOCYTES % (AUTO) 20.5 % (20.5-51.1); MEAN CORPUSCULAR HEMOGLOBIN 29 pg (27-31); MEAN CORPUSCULAR HGB CONC 33 g/dL (33-37); MEAN CORPUSCULAR VOLUME 86.5 fL (80-94); MONOCYTES # (AUTO) 0.7 K/uL (0.8-1.0); MONOCYTES % (AUTO) 7.3 % (1.7-9.3); NEUTROPHILS # (AUTO) 6.4 K/uL (1.8-7.7); NEUTROPHILS % (AUTO) 70.2 % (42.2-75.2); PLATELET COUNT (AUTO) 406 K/uL (140-450); RED BLOOD CELL COUNT(AUTO) 3.69 MIL/uL (4.20-5.40); RED CELL DISTRIBUTION WIDTH 14.6 % (11.6-13.7); WHITE BLOOD COUNT (AUTO) 9.1 K/uL (4.8-10.8)
[2023-07-03 07:07] LABS: ALBUMIN 2.4 g/dL (3.4-5.0); ANION GAP 10.2 (8-16); CALCIUM 9.5 mg/dL (8.5-10.1); CARBON DIOXIDE 32.1 mmol/L (21-32); CREATININE 0.9 mg/dL (0.6-1.3); MAGNESIUM 2.2 mg/dL (1.8-2.4); POTASSIUM 4.3 mmol/L (3.5-5.1); TOTAL BILIRUBIN 0.3 mg/dL (0.0-1.0); TOTAL PROTEIN, SERUM 7.7 g/dL (6.4-8.2)
[2023-07-03 08:00] VITALS: BP 134/85; PULSE 75; PULSE 87; RESP 17; TEMP 98; O2SAT 97
[2023-07-03 16:00] VITALS: BP 132/73; PULSE 78; RESP 18; TEMP 97.9; O2SAT 98
[2023-07-03 19:41] VITALS: BP 112/66; PULSE 89; RESP 18; TEMP 97.5; O2SAT 96
[2023-07-03 19:42] VITALS: TEMP 97.5
[2023-07-03 20:00] VITALS: PULSE 89; RESP 18; O2SAT 96
[2023-07-04 04:00] VITALS: BP 121/64; PULSE 70; RESP 18; TEMP 97.2; O2SAT 97
[2023-07-04 07:23] LABS: BASOPHILS # (AUTO) 0.1 K/uL (0.00-0.22); BASOPHILS % (AUTO) 0.6 % (0.0-2.0); EOSINOPHILS # (AUTO) 0.4 K/uL (0-0.4); EOSINOPHILS % (AUTO) 3.8 % (0.0-4.0); HEMATOCRIT 30.5 % (36-48); HEMOGLOBIN 10.2 g/dL (12.0-16.0); LYMPHOCYTES # (AUTO) 2.1 K/uL (2.5-16.5); LYMPHOCYTES % (AUTO) 21.9 % (20.5-51.1); MEAN CORPUSCULAR HEMOGLOBIN 29 pg (27-31); MEAN CORPUSCULAR HGB CONC 34 g/dL (33-37); MEAN CORPUSCULAR VOLUME 85.7 fL (80-94); MONOCYTES # (AUTO) 0.7 K/uL (0.8-1.0); NEUTROPHILS # (AUTO) 6.2 K/uL (1.8-7.7); NEUTROPHILS % (AUTO) 65.7 % (42.2-75.2); PLATELET COUNT (AUTO) 398 K/uL (140-450); RED BLOOD CELL COUNT(AUTO) 3.56 MIL/uL (4.20-5.40); RED CELL DISTRIBUTION WIDTH 14.1 % (11.6-13.7); WHITE BLOOD COUNT (AUTO) 9.4 K/uL (4.8-10.8)
[2023-07-04 07:57] VITALS: TEMP 98
[2023-07-04 08:00] VITALS: BP 127/75; PULSE 80; RESP 18; TEMP 97.6; O2SAT 97
[2023-07-04 08:13] LABS: ANION GAP 16.1 (8-16); CALCIUM 8.6 mg/dL (8.5-10.1); CARBON DIOXIDE 25.9 mmol/L (21-32); CREATININE 0.8 mg/dL (0.6-1.3)
[2023-07-04 08:19] LABS: ALBUMIN 2.5 g/dL (3.4-5.0); TOTAL BILIRUBIN 0.2 mg/dL (0.0-1.0); TOTAL PROTEIN, SERUM 7.1 g/dL (6.4-8.2)
[2023-07-04 09:08] VITALS: PULSE 80; RESP 18; O2SAT 97
[2023-07-04 16:35] VITALS: BP 116/68; PULSE 76; RESP 18; TEMP 97.4; O2SAT 98
[2023-07-04 20:00] VITALS: BP 118/70; PULSE 100; RESP 18; TEMP 97.7; TEMP 97.8; O2SAT 98
[2023-07-05 04:00] VITALS: BP 134/83; PULSE 85; RESP 18; TEMP 97.8; O2SAT 97
[2023-07-05 07:03] LABS: BASOPHILS % (AUTO) 0.4 % (0.0-2.0); EOSINOPHILS # (AUTO) 0.3 K/uL (0-0.4); EOSINOPHILS % (AUTO) 2.7 % (0.0-4.0); HEMATOCRIT 30.6 % (36-48); HEMOGLOBIN 10.3 g/dL (12.0-16.0); LYMPHOCYTES # (AUTO) 1.5 K/uL (2.5-16.5); LYMPHOCYTES % (AUTO) 14.9 % (20.5-51.1); MEAN CORPUSCULAR HEMOGLOBIN 29 pg (27-31); MEAN CORPUSCULAR HGB CONC 34 g/dL (33-37); MEAN CORPUSCULAR VOLUME 85.3 fL (80-94); MONOCYTES # (AUTO) 0.8 K/uL (0.8-1.0); MONOCYTES % (AUTO) 7.5 % (1.7-9.3); NEUTROPHILS # (AUTO) 7.6 K/uL (1.8-7.7); NEUTROPHILS % (AUTO) 74.5 % (42.2-75.2); PLATELET COUNT (AUTO) 388 K/uL (140-450); RED BLOOD CELL COUNT(AUTO) 3.59 MIL/uL (4.20-5.40); RED CELL DISTRIBUTION WIDTH 14.3 % (11.6-13.7); WHITE BLOOD COUNT (AUTO) 10.2 K/uL (4.8-10.8)
[2023-07-05 07:25] LABS: ALBUMIN 2.5 g/dL (3.4-5.0); ANION GAP 11.1 (8-16); CALCIUM 8.9 mg/dL (8.5-10.1); CARBON DIOXIDE 28.7 mmol/L (21-32); CREATININE 0.8 mg/dL (0.6-1.3); POTASSIUM 3.8 mmol/L (3.5-5.1); TOTAL BILIRUBIN 0.3 mg/dL (0.0-1.0); TOTAL PROTEIN, SERUM 7.5 g/dL (6.4-8.2)
[2023-07-05 08:00] VITALS: BP 139/77; PULSE 82; PULSE 95; RESP 18; TEMP 97.5; O2SAT 97; O2SAT 98
[2023-07-05 16:00] VITALS: BP 106/60; PULSE 84; RESP 18; TEMP 98.5; O2SAT 97
[2023-07-05] MEDS: MORPHINE SULFATE 2 MG/ML SYR IVP PRN (16:40)
[2023-07-05 20:00] VITALS: BP 124/81; PULSE 96; RESP 16; TEMP 98.6; O2SAT 97
[2023-07-06 04:00] VITALS: BP 125/76; PULSE 84; RESP 18; TEMP 98.6; O2SAT 97
[2023-07-06 06:57] LABS: BASOPHILS # (AUTO) 0.1 K/uL (0.00-0.22); BASOPHILS % (AUTO) 0.5 % (0.0-2.0); EOSINOPHILS # (AUTO) 0.2 K/uL (0-0.4); EOSINOPHILS % (AUTO) 2.3 % (0.0-4.0); HEMATOCRIT 30.9 % (36-48); HEMOGLOBIN 10.5 g/dL (12.0-16.0); LYMPHOCYTES # (AUTO) 1.8 K/uL (2.5-16.5); LYMPHOCYTES % (AUTO) 17.8 % (20.5-51.1); MEAN CORPUSCULAR HEMOGLOBIN 29 pg (27-31); MEAN CORPUSCULAR HGB CONC 34 g/dL (33-37); MEAN CORPUSCULAR VOLUME 85.5 fL (80-94); MONOCYTES # (AUTO) 0.9 K/uL (0.8-1.0); MONOCYTES % (AUTO) 8.6 % (1.7-9.3); NEUTROPHILS # (AUTO) 7.3 K/uL (1.8-7.7); NEUTROPHILS % (AUTO) 70.8 % (42.2-75.2); PLATELET COUNT (AUTO) 363 K/uL (140-450); RED BLOOD CELL COUNT(AUTO) 3.62 MIL/uL (4.20-5.40); RED CELL DISTRIBUTION WIDTH 14.5 % (11.6-13.7); WHITE BLOOD COUNT (AUTO) 10.3 K/uL (4.8-10.8)
[2023-07-06 07:27] LABS: ALBUMIN 2.5 g/dL (3.4-5.0); ANION GAP 11.5 (8-16); CALCIUM 9.1 mg/dL (8.5-10.1); CARBON DIOXIDE 29.2 mmol/L (21-32); CREATININE 0.8 mg/dL (0.6-1.3); POTASSIUM 3.7 mmol/L (3.5-5.1); TOTAL BILIRUBIN 0.3 mg/dL (0.0-1.0); TOTAL PROTEIN, SERUM 7.4 g/dL (6.4-8.2)
[2023-07-06 08:20] VITALS: TEMP 97.1
[2023-07-06 08:21] VITALS: PULSE 88; RESP 19; O2SAT 99
[2023-07-06] MEDS ORDERED: LEVO750T75 PO (11:41)
[2023-07-06] MEDS ORDERED: ACET-1182 PO (11:41)
[2023-07-06] MEDS ORDERED: CARV12.52 PO (11:41)
[2023-07-06] MEDS ORDERED: AMLO-3 PO (11:41)
[2023-07-06 11:52] VITALS: BP 125/75; PULSE 68; RESP 19; TEMP 97.1
[2023-07-07] MEDS ORDERED: IBUP-2213 PO (10:51)
== END 2023-07-06 14:07 | disposition home health service (06) | DRG 853 ==
LOC: MED 10:50 → MIC 15:24 → MTU 15:24 → MIC 06-18 01:20 → MTU 06-20 19:15
PROVIDERS: ADMIT Student in an Organized Health Care Education/Training Program; ATTEND Student in an Organized Health Care Education/Training Program
PROC: 0JNC0ZZ Release Pelvic Region Subcutaneous Tissue and Fascia, Open Approach (ICD-10-PCS; 2023-06-18)
PROC: 0W9J0ZZ Drainage of Pelvic Cavity, Open Approach (ICD-10-PCS; 2023-06-18)
PROC: 0UB50ZZ Excision of Right Fallopian Tube, Open Approach (ICD-10-PCS; principal; 2023-06-18 00:15)
PROC: 0W9J3ZZ Drainage of Pelvic Cavity, Percutaneous Approach (ICD-10-PCS; 2023-06-25)
DX: A41.9 Sepsis, unspecified organism (principal); J96.01 Acute respiratory failure with hypoxia; K65.0 Generalized (acute) peritonitis; R65.21 Severe sepsis with septic shock; N70.93 Salpingitis and oophoritis, unspecified; I11.0 Hypertensive heart disease with heart failure; K66.8 Other specified disorders of peritoneum; I50.9 Heart failure, unspecified; I16.0 Hypertensive urgency; N83.202 Unspecified ovarian cyst, left side; F41.9 Anxiety disorder, unspecified; F32.A Depression, unspecified; Z90.49 Acquired absence of other specified parts of digestive tract; Z82.5 Family history of asthma and other chronic lower respiratory diseases; Z81.8 Family history of other mental and behavioral disorders; Z82.49 Family history of ischemic heart disease and other diseases of the circulatory system
CPT/HCPCS: 36415; 71045; 74018; 74022; 76830; 80048; 80053; 80076; 81001; 81003; 82948; 83690; 83735; 84100; 85025; 85610; 85730; 87040; 87070; 87075; 87081; 87086; 87186; 87205; 88307; 94002; 94010; 94640; 96374; 96375; 97112; 97116; 97163-GP; 97530; 99285; C1729; C9113; J0330; J0360; J0456; J0690; J0696; J1100; J1170; J1644; J1885; J1956; J2001; J2185; J2250; J2270; J2405; J2543; J2704; J2765; J3010; J3475; J3480; J3490; J7030; J7060; J7613; Q0092; Q9967